=== PATIENT | female | born 1965 | race African-American/Black ===

== ENCOUNTER 2017-04-24 20:27 | Inpatient (IN) | payer OTHER ==
[~2017-04-24 20:27] MED LIST: ISOVUE-370 76%-LOCM 1 ML ONE
[2017-04-24] MEDS ORDERED: Acetaminophen 325 MG TAB ONE (20:53)
[2017-04-24 21:39] LABS: #Lymphocytes 0.8 thou/uL (1.20-3.40); #Monocytes 0.5 thou/uL (0.11-0.59); #Neutrophils 2.9 thou/uL (1.40-6.50); %Basophils 0.4 % (0.0-1.0); %Eosinophils 0.1 % (0.0-10.0); %Lymphocytes 19.4 % (21.0-51.0); %Monocytes 11.5 % (0.0-10.0); Hematocrit 30.8 % (36.0-47.0); Mean Platelet Volume 7.1 fL (7.4-10.4); Red Blood Cell (RBC) Count 3.68 mill/uL (4.20-5.40); White Blood Cell (WBC) Count 4.2 thou/uL (4.8-10.8)
[2017-04-24] MEDS ORDERED: Ketorolac Tromethamine 30 MG/ML VIAL ONE (21:52)
[2017-04-24 21:58] LABS: ALT (SGPT) 12 U/L (8-55); AST (SGOT) 19 U/L (5-34); Alkaline Phosphatase 72 U/L (40-150); Anion Gap 13 mmol/L (10-20); BUN (Urea Nitrogen) 13 mg/dL (7.0-18.7); Bilirubin, Total 0.2 mg/dL (0.2-1.2); CK (CPK) 264 U/L (29-168); Calc. Creatinine Clearance 0 mL/min (70-130); Carbon Dioxide 23 mmol/L (22-29); Chloride 107 mmol/L (98-107); Estimated GFR-MDRD Greater than 90; Globulin 3.6 g/dL (2.4-3.5); Lipase 12 U/L (8-78)
[2017-04-24 22:04] LABS: Acetaminophen Less than 6.0 mcg/mL (10.0-30.0); Salicylate Less than 8.0 mg/dL (15.0-30.0)
[2017-04-24 22:42] LABS: Troponin I 0.497 ng/mL (< 0.028)
--- NOTE | 2017-04-24 22:56 | RAD ---
SINGLE VIEW OF THE CHEST: 04/24/17 COMPARISON: None. HISTORY: Chest pain that began yesterday. Rectal bleeding for four days. FINDINGS: Single view of the chest shows a normal sized cardiomediastinal silhouette. There are areas of air s pace opacity projecting over the right lower lobe. No pleural effusion is seen. IMPRESSION: Areas of air space opacity in the right lower lobe may represent an infiltrate. Recommend following to resolution to exclude an underlying mass. POS: [facility]
[2017-04-24] MEDS ORDERED: Rabies Vaccine 2.5 UNIT VIAL IM SCH (23:45)
--- NOTE | 2017-04-25 00:15 | CT ---
CT OF THE ABDOMEN AND PELVIS WITH CONTRAST 04/24/17 COMPARISON: None. HISTORY: Multiple complaints including rectal bleeding and left flank pain that radiates to the left groin. S ubjective fever. TECHNIQUE: Multiple contiguous axial images were obtained in a CT of the abdomen and pelvis with contrast. Anastacia nal reformats were performed. FINDINGS: There are calcifications in the liver and spleen likely from prior granulomatous disease. The gallbl adder, kidneys, adrenal glands, and pancreas are unremarkable. No calcifications are seen in either kidney or along the course of the ureters. No hydronephrosis is seen. The uterus is enlarged with multiple apparent masses. These likely represent uterine fibroids. The v isualized large and small bowel are unremarkable. The appendix is unremarkable. No abdominal or pelvic lymphadenopathy are appreciated. Degenerative changes are seen in the spine. The visualized inferior thorax and abdominal wall soft tissues are unremarkable. IMPRESSION: 1. No evidence of acute intra-abdominal/pelvic abnormality. 2. Enlarged fibroid uterus. POS: [facility]
[2017-04-25] MEDS ORDERED: Ondansetron HCl/PF 4 MG/2 ML Vial IVP PRN (01:39)
[2017-04-25] MEDS ORDERED: Ondansetron ODT 4 MG TAB SL PRN (01:39)
[2017-04-25] MEDS ORDERED: Acetaminophen 325 MG TAB PO PRN (01:39)
[2017-04-25] MEDS ORDERED: Sodium Chloride 0.9% 1,000 ML IV SCH (01:45)
[2017-04-25 04:01] LABS: Troponin I 0.938 ng/mL (< 0.028)
[2017-04-25 05:55] LABS: Critical Call Chem Troponin I RESULT DECREASING
[2017-04-25] MEDS ORDERED: Potassium Chloride 20 MEQ TAB PO SCH (08:00)
[2017-04-25] MEDS ORDERED: Aspirin 81 mg Enteric Coated Tablet PO SCH (09:00)
[2017-04-25] MEDS ORDERED: traMADol HCl 50 MG TAB PO PRN (10:00)
--- NOTE | 2017-04-25 11:17 | CON ---
DATE OF CONSULTATION: 04/25/2017 REASON FOR CONSULTATION: Elevated troponin and chest pain. PRIMARY CARE PROVIDER: Dr. John Adams HISTORY OF PRESENT ILLNESS: Ms. Gonzales is an unfortunate 51-year-old woman with history of lupus, illicit drug use and tobacco abuse who recently presented with chest pain, back pain in addition to left flank pain. She also has had fevers and chills. She recently had a dog bite which was left u ntreated. Chest pain is described as sharp and constant, although now improved. Her peak troponin was 0.9 and is now down trending. PAST MEDICAL HISTORY: Chronic bronchitis, lupus, cervical cancer, continued tobacco abuse, bipolar disorder, COPD, BTL, hernia repair, cervical biopsy, thumb surgery. SOCIAL HISTORY: She states she used cocaine a few days ago. This likely corresponds to her recent symptoms. Positive tobacco and alcohol use. HOME MEDICATIONS: Include Celexa, Zyprexa, Naproxen, prednisone. REVIEW OF SYSTEMS: Ten point review of systems is reviewed and is as above, otherwise negative. PHYSICAL EXAMINATION: VITAL SIGNS: Blood pressure 98/53, pulse 81, temperature 99. GENERAL: Patient is a pleasant female who is in no acute distress. The patient appears older than h er stated age. NEUROLOGIC: The patient is alert and oriented times 3 with no focal neurologic deficits. HEENT: Sclerae without icterus. Mouth has moist mucous membranes with normal pallor. Poor dentiti on. NECK: No JVD. Carotid upstroke brisk. No bruits bilaterally. LUNGS: Clear to auscultation with unlabored respirations. BACK: No scoliosis or kyphosis. CARDIAC: Regular rate and rhythm with normal S1 and S2. No S3 or S4 noted. No significant rubs, mu rmurs, thrills, or gallops noted throughout the precordium. PMI is not displaced. There is no para sternal heave. ABDOMEN: Soft, nontender, nondistended. No peritoneal signs present. No hepatosplenomegaly. No ab normal striae. EXTREMITIES: 2+ femoral and 2+ dorsalis pedis pulses. No cyanosis, clubbing, or edema. Dog bite no sultana to her right leg. SKIN: No gross abnormalities. PERTINENT LABORATORY: As described above including a hemoglobin 9.6. Peak troponin 0.938 which is down trending, now 0.78, creatinine 0.81. EKG normal sinus rhythm, normal EKG. IMPRESSION: 1. Elevated troponin. 2. Chest pain. 3. Recent dog bite. 4. Lupus. 5. Illicit drug use. 6. Tobacco abuse. RECOMMENDATIONS: Ms. Petersen's case is certainly complex. She has had recent fevers, recent dog bi te in addition to rectal bleeding and is currently menstruating. She is currently chest pain free. Etiology of elevated troponin could be multifactorial and likely related to demand ischemia with no sultana above. Given that she is chest pain free with downgoing troponins, would recommend conservative treatment for now until she defervesces. May consider a noninvasive stress study versus angiograph y. Would also recommend an echo with Doppler to assess LV function. I counseled her on cessation o f all illicit drug use and the risks of use of cocaine, including coronary spasm and .
[2017-04-25] MEDS: PROVENTIL INHALER 6.7 G (200 INHALATIONS) INH SCH (19:05)
[2017-04-25] MEDS: Mometasone/Formoterol 120 PUFF INHALER INH SCH (19:05)
[2017-04-25] MEDS ORDERED: Diabetic Tussin DM 5 ML UDCUP PO PRN (19:11)
[2017-04-25 19:24] LABS: Amphetamine Not Detected (NotDetected); Methadone Not Detected (NotDetected); Methamphetamine Not Detected (NotDetected)
[2017-04-25] MEDS: Guaifenesin DM 100-10/5 ML UDCUP PO PRN (19:48)
[2017-04-25] MEDS: traMADol HCl 50 MG TAB PO PRN (19:48)
[2017-04-26] MEDS: traMADol HCl 50 MG TAB PO PRN ×3 (03:04→20:16)
[2017-04-26 06:05] LABS: #Eosinphils 0.1 thou/uL (0.0-0.7); #Monocytes 0.5 thou/uL (0.11-0.59); #Neutrophils 1.8 thou/uL (1.40-6.50); %Basophils 0.5 % (0.0-1.0); %Eosinophils 1.6 % (0.0-10.0); %Lymphocytes 29.9 % (21.0-51.0); Hematocrit 30.4 % (36.0-47.0); Mean Platelet Volume 7.9 fL (7.4-10.4); Red Blood Cell (RBC) Count 3.61 mill/uL (4.20-5.40); White Blood Cell (WBC) Count 3.4 thou/uL (4.8-10.8)
--- NOTE | 2017-04-26 06:23 | HP ---
DATE OF ADMISSION: 04/24/2017 CHIEF COMPLAINT: Chest pain, abdominal pain, rectal bleeding. HISTORY OF PRESENT ILLNESS: Ms. Gonzales is a 51-year-old -[place] female with past medical history of bipolar disorder, drug abuse, chronic back pain, and COPD, who came because of the chest pain. The patient states the pain is sharp in nature and she states it started with back pain and left flank pain, and radiating to the chest in the substernal area. The patient says the pain was n ot associated with any nausea or vomiting but associated with some shortness of breath. The pain wa s getting worse, so she decided to come to the hospital. The patient had a recent surgery for umbil ical hernia. The patient also had episodes of rectal bleeding x4 in the last few days. The patient claims she also had low-grade fever at home. The patient also admits to using cocaine and marijuan a 3 days ago. Last time she took was over 3 days ago. The patient also reports has dog bite 2 week s ago in the right leg. It was unprovoked stray dog bite. The patient came to the emergency room w here she was evaluated. She was given post exposure rabies vaccination found to have elevated troponin suggestive of NSTEMI. The patient is admitted for further evaluation and management. She was given KCl because the patient was hypokalemic as well, also received Lovenox. Currently, her c hest pain is better. PAST MEDICAL HISTORY: 1. Chronic bronchitis versus COPD. 2. Bipolar disorder. 3. Polysubstance abuse. 4. Tobacco abuse. 5. History of lupus. 6. Chronic back pain. PAST SURGICAL HISTORY: 1. Status post umbilical hernia repair. 2. Status post thumb surgery. 3. Status post cervical biopsy. CURRENT MEDICATIONS: The patient is on Zyprexa 10 mg daily, Celexa 20 mg daily, Symbicort 160/4.5 t wo puffs b.i.d., ProAir inhaler two puffs b.i.d., tramadol 50 q.i.d. p.r.n. ALLERGIES: No known drug allergies. FAMILY HISTORY: Nothing of interest. SOCIAL HISTORY: The patient lives with family. Smokes 1 pack a day and uses marijuana and cocaine. REVIEW OF SYSTEMS: Cardiovascular: Has chest pain and shortness of breath. Respiratory: Cough an d fever. Gastrointestinal: Abdominal pain, nausea, vomiting as well as rectal bleeding. Central N ervous System: No headache, no dizziness. PHYSICAL EXAMINATION: GENERAL: The patient is alert, awake, and oriented x3. VITAL SIGNS: Temperature 98, pulse 81, respirations 20, blood pressure 98/60. HEENT: Head is normocephalic, atraumatic. Pupils are equal and reactive. Nasopharynx is pink, pal e, and dry. Hard and soft palate, no lesions seen. SKIN: Skin turgor decreased. NECK: Supple. No JVD. LUNGS: Breath sounds diminished bilaterally. Percussion dull bilaterally. No rales, no rhonchi. HEART: S1, S2 regular. ABDOMEN: Soft. Surgical scar present in umbilical area. Abdomen is slightly tender diffusely. No guarding, no rigidity. Bowel sounds present. RECTAL: Done in the ER revealed heme-positive stool. NEUROLOGIC: No focal deficits. EXTREMITIES: No edema. Right lower leg has the dog bite wound. LABORATORY AND X-RAY FINDINGS: CBC shows WBC 4, hemoglobin 9.6, hematocrit 30, and platelets 326. Metabolic panel: Sodium 140, potassium 3.1, chloride 107, CO2 of 23, BUN 13, creatinine 0.8, glucos e 115, CK-MB 5.37, troponin 0.49. BNP was 133. Serum negative. Chest x-ray showed areas of air space opacity in the right lower lobe. EKG shows normal sinus rhythm, no acute ST-T wave change s seen. CT of the abdomen is unremarkable. ASSESSMENT: 1. Fcm-LN-evhoxiqnc myocardial infarction. 2. Possible demand ischemia. 3. Abdominal pain. 4. History of rectal bleeding. 5. Hypokalemia. 6. Chronic obstructive pulmonary disease. 7. Drug abuse. 8. Bipolar disorder. 9. Dog bite..
[2017-04-26 06:38] LABS: Anion Gap 13 mmol/L (10-20); BUN (Urea Nitrogen) 6 mg/dL (7.0-18.7); Calc. Creatinine Clearance 90 mL/min (70-130); Calcium 8.4 mg/dL (7.8-10.44); Carbon Dioxide 22 mmol/L (22-29); Chloride 104 mmol/L (98-107); Estimated GFR-MDRD Greater than 90; Iron 17 ug/dL (50-170)
[2017-04-26] MEDS: PROVENTIL INHALER 6.7 G (200 INHALATIONS) INH SCH ×2 (07:34→20:21)
[2017-04-26] MEDS: Mometasone/Formoterol 120 PUFF INHALER INH SCH ×2 (07:36→20:23)
[2017-04-26] MEDS: Ondansetron HCl/PF 4 MG/2 ML Vial IVP PRN (09:37)
--- NOTE | 2017-04-26 10:34 | RAD ---
PA AND LATERAL CHEST: Date: 04/26/17 HISTORY: Shortness of breath. COMPARISON: 04/24/17. FINDINGS: The rounded patchy density at the right lung base on the prior study is not seen on this study and h as resolved. There is an increased density focus of right lung base which has the appearance most galarza ggestive of a calcified granuloma. There is mild increased in linear interstitial densities at the l eft lung base which have developed from the prior study which could be related to either atelectasis or developing area of pneumonitis. Follow-up evaluation is recommended. Lungs are otherwise clear. Cardiac silhouette and pulmonary vasculature are within normal limits. No other interval change. IMPRESSION: 1. Interval development of increased linear and interstitial densities at the left lung base which could be related to either atelectasis or developing area of pneumonitis. Follow-up evaluation is re commended. 2. Resolution of rounded patchy density at the right lung base compared to the prior study. Calcifi ed granulomata are seen in the right lower lobe, but the right lung is otherwise clear. POS: [facility]
[2017-04-26] MEDS: OLANZapine 5 MG TAB PO SCH (11:00)
--- NOTE | 2017-04-26 18:16 | PRG ---
DATE OF SERVICE: 04/26/2017 SUBJECTIVE: Ms. Gonzales states she is feeling better today. She has less shortness of breath. No chest pain or pressure noted. She continued to have mild left flank pain. PHYSICAL EXAMINATION: VITAL SIGNS: Blood pressure 104/73, pulse 75, temperature 98.7. LUNGS: Rhonchi and rales bilaterally. CARDIAC: Regular rate and rhythm. ABDOMEN: Soft, nontender, nondistended. EXTREMITIES: No edema. LABORATORY DATA: Hemoglobin 9.6, creatinine 0.71. IMPRESSION: 1. Elevated troponin. 2. Anemia. 3. Rectal bleeding. 4. Recent hernia repair. 5. Cocaine use. 6. Tobacco abuse. RECOMMENDATIONS: Ms. Gonzales most likely demand ischemia from that stated above. She does not shanti ear to be an acute infarct. I would consider a noninvasive stress study prior to proceeding with an giography. She will be treated with . I would recommend a noninvasive stress study on Saturday. Further recommendations pending the findings on the stress.
[2017-04-26] MEDS: Guaifenesin DM 100-10/5 ML UDCUP PO PRN (20:17)
--- NOTE | 2017-04-26 22:49 | CON ---
DATE OF CONSULTATION: 04/26/2017 GASTROENTEROLOGY CONSULTATION CHIEF COMPLAINT: Abdominal pain, back pain, blood in stool, and chest pain. HISTORY OF PRESENT ILLNESS: Ms. Gonzales is a 51-year-old woman with COPD and history of bipolar di sorder, who presented with primarily back pain as well as some chest pain in the substernal area and left lower quadrant stabbing abdominal pain that goes on for hours at a time. She has had constipa tion with 3 to 4 days between bowel movements lately. She has had blood in the stool with red blood on the toilet paper and intermittent red blood in the toilet water and mixed with the stools severa l times per week. This has been going on over the last couple of months. She reports heavy menstru al periods that have come multiple times per month. She has a history of cervical cancer in the rem ote past back in the . Her last Pap smear was 2001. She had recurrent umbilical hernia repair on 01/18/2017. PAST MEDICAL HISTORY: Polysubstance abuse, her last cocaine use was a few days prior to admission; bipolar disorder; COPD; lupus; chronic back pain. PAST SURGICAL HISTORY: Umbilical hernia repair, thumb surgery, cervical biopsy. ALLERGIES: No known drug allergies. CURRENT INPATIENT MEDICATIONS: Include albuterol, citalopram, mometasone, and olanzapine. FAMILY HISTORY: Negative for GI malignancy. SOCIAL HISTORY: She smokes a pack per day. She has had recent cocaine and marijuana use. No ongoi ng alcohol use. REVIEW OF SYSTEMS: Negative x10 systems reviewed except as stated in the history of present illness . PHYSICAL EXAMINATION: VITAL SIGNS: Temperature 100.8, pulse 67, blood pressure 117/73. GENERAL: She is in no acute distress. She is alert and oriented x3. HEENT: Eyes have no scleral icterus. Oropharynx is clear without lesions. She has poor dentition and she complains of pain in the left upper tooth. NECK: There is no cervical or supraclavicular lymphadenopathy. LUNGS: Clear to auscultation bilaterally. HEART: Regular rate and rhythm. ABDOMEN: Soft. She is tender in the left lower quadrant without guarding. Bowel sounds are presen t. She also has some tenderness in the epigastric region. EXTREMITIES: No lower extremity edema. LABORATORY AND X-RAY FINDINGS: Urine cocaine was positive. Troponin peak is 0.93. Creatinine is 0 .81. Iron 17, TIBC 295, ferritin 10, albumin 3.4, bilirubin 0.2, AST 19, ALT 12, alkaline phosphata se 72, and lipase 12. White blood cell count 3.4, hemoglobin 9.6, and platelets 307. IMPRESSION: 1. Iron deficiency anemia. She has had intermittent rectal bleeding. She takes naproxen daily. S he has epigastric tenderness and left lower quadrant tenderness. Rule out peptic ulcer disease or l ower gastrointestinal bleeding source. She has heavy menstrual periods; however, multiple times per month along with abnormal findings of the uterus on CT scan. She has a history of cervical cancer for which probably she has refused evaluation since 2001. 2. Hematochezia. 3. Chronic constipation. 4. Elevated troponin with cocaine use. Dr. Mustafa has evaluated her and believes that this is l ikely demand ischemia. She has had an echocardiogram performed and she is planned for stress test o saturday. RECOMMENDATIONS: 1. MiraLax daily for the constipation. 2. Recommend EGD and colonoscopy once the cardiac evaluation is completed. If she remains in the h [facility]spital then this can be done as an inpatient.
[2017-04-27] MEDS: traMADol HCl 50 MG TAB PO PRN ×3 (03:33→19:09)
[2017-04-27] MEDS: PROVENTIL INHALER 6.7 G (200 INHALATIONS) INH SCH ×2 (07:36→20:02)
[2017-04-27] MEDS: Mometasone/Formoterol 120 PUFF INHALER INH SCH ×2 (07:37→20:04)
[2017-04-27] MEDS: OLANZapine 5 MG TAB PO SCH (08:32)
[2017-04-27] MEDS ORDERED: Rabies Vaccine Human 2.5 UNITS VIAL IM ONE (09:00)
[2017-04-27] MEDS: Polyethylene Glycol 3350 17 GM Packet PO SCH (12:26)
--- NOTE | 2017-04-27 13:06 | PRG ---
DATE OF SERVICE: 04/27/2017 SUBJECTIVE: Ms. Gonzales has some seepage of red blood intermittently from her rectum that she iden tifies on the toilet tissue. She still has some left-sided abdominal pain. OBJECTIVE: VITAL SIGNS: Temperature 98.1, pulse 62, blood pressure 105/74. LABORATORY DATA: Hemoglobin is 9.6. IMPRESSION: 1. Iron deficiency anemia. 2. Hematochezia. 3. Chronic constipation. PLAN: 1. EGD and colonoscopy once cardiology evaluation of the elevated troponins is completed. She had cocaine abuse with chest pain and likely demand ischemia. 2. She does have a history of cervical cancer which has not been followed up for years per her repo rt.
--- NOTE | 2017-04-27 15:33 | PDOC.CTH ---
Cardiology Progress Note - Subjective No new issues. - Objective Vital Signs Temp Pulse Resp BP Pulse Ox 04/27/17 12:00 97.9 F 72 16 114/68 100 04/27/17 08:00 98.1 F 62 16 105/74 97 04/27/17 04:05 99.6 F 67 20 138/73 94 L Admit Weight 132 lb 4.8 oz Weight 132 lb 7.965 oz 04/26/17 04/27/17 04/28/17 06:59 06:59 06:59 Intake Total 1560 2110 Output Total 1100 1500 Balance 460 610 - Physical Examination General/Neuro: alert & oriented x3, NAD Neck: no JVD present Lungs: unlabored respirations Heart: RRR Abdomen: NT/ND Extremities: other: (no edema.) - Telemetry Telemetry Rhythm: NSR - Labs Result Diagrams: 04/26/17 04:52 04/26/17 04:52 Troponin/CKMB CK-MB (CK-2) 5.3 ng/mL (0-6.6) 04/24/17 21:22 Troponin I 0.780 ng/mL (< 0.028) H* 04/25/17 04:57 - Assessment/Plan 1. NSTEMI 2. Substance abuse, cocaine 3. Hematochezia PLAN: - Likely demand ischemia from substance use. - MPI tomorrow for risk stratification.
--- NOTE | 2017-04-27 17:53 | ULT ---
TRANSABDOMINAL AND TRANSVAGINAL PELVIC ULTRASOUND: 04/27/17 INDICATION: History of rectal bleeding and uterine fibroids. COMPARISON: CT of the abdomen and pelvis dated 04/24/17. TECHNIQUE: Hernández scale, color doppler and vascular duplex with spectral analysis was performed of the pelvis via transabdominal and transvaginal approach. FINDINGS: The uterus is enlarged and heterogeneous measuring 11.4 x 6.3 x 5.7 cm. The largest fibroid seen wit hin the intramural portion of the uterus along the left anterior body measures 5.7 x 4 x 4.7 cm. The endometrial stripe due to the enlarged and lobulated uterus is difficult to evaluate; however, it m easures approximately 1 cm with a small amount of endometrial fluid present. Small amount of free fl uid is seen within the cul-de-sac. The right ovary measures 3.3 x 2 x 1.9 cm. Left ovary measures 4.1 x 2.2 x 2.4 cm. Normal flow is pr esent to both ovaries. IMPRESSION: 1. Fibroid uterus. 2. Mild free fluid in the pelvis. POS: [facility]
[2017-04-28] MEDS: traMADol HCl 50 MG TAB PO PRN ×3 (03:56→20:12)
[2017-04-28] MEDS: PROVENTIL INHALER 6.7 G (200 INHALATIONS) INH SCH ×2 (07:43→18:45)
[2017-04-28] MEDS: Mometasone/Formoterol 120 PUFF INHALER INH SCH ×2 (07:46→18:47)
[2017-04-28] MEDS: OLANZapine 5 MG TAB PO SCH (08:43)
[2017-04-28] MEDS: Ondansetron HCl/PF 4 MG/2 ML Vial IVP PRN (13:33)
[2017-04-28] MEDS: Polyethylene Glycol 3350 17 GM Packet PO SCH (15:02)
--- NOTE | 2017-04-28 15:39 | PDOC.CTH ---
Cardiology Progress Note - Subjective No chest pain. No new issues. - Objective Vital Signs Temp Pulse Resp BP BP Pulse Ox 04/28/17 15:00 97.7 F 94 16 115/61 98 04/28/17 08:00 97.7 F 76 16 99/58 L 94 L 04/28/17 07:46 76 16 97 04/28/17 07:43 76 16 97 04/28/17 04:00 99.4 F 72 20 102/61 95 Admit Weight 132 lb 4.8 oz Weight 125 lb 11.2 oz 04/27/17 04/28/17 04/29/17 06:59 06:59 06:59 Intake Total 2110 1740 Output Total 1500 2570 Balance 610 -830 - Physical Examination General/Neuro: alert & oriented x3, NAD Neck: no JVD present Lungs: unlabored respirations Heart: RRR Abdomen: NT/ND Extremities: other: (no edema) - Telemetry Telemetry Rhythm: NSR - Labs Result Diagrams: 04/26/17 04:52 04/26/17 04:52 Troponin/CKMB CK-MB (CK-2) 5.3 ng/mL (0-6.6) 04/24/17 21:22 Troponin I 0.780 ng/mL (< 0.028) H* 04/25/17 04:57 - Assessment/Plan 1. NSTEMI 2. Substance abuse, cocaine 3. Hematochezia PLAN: - Likely demand ischemia from substance use. - Awaiting results of MPI done today.
--- NOTE | 2017-04-28 17:06 | NM ---
MYOCARDIAL PERFUSION AND QUANTATIVE GATED SPECT STUDY: History: 51-year-old with NSTEMI. Dose: 28.3 mCi Technetium 99M Cardiolite for stress and 9.4 mCi for the resting portion of the exam. Myocardial perfusion and quantitative gated SPECT images obtained. The patient was stressed using 0 .4 mg Lexiscan given IV. FINDINGS: Images demonstrate no significant evidence of areas of reversibility. No evidence of myocardial isch emia or scar is seen. Ejection fraction measures 75%. No evidence of wall motion abnormality is seen. IMPRESSION: Normal myocardial perfusion and quantitative gated SPECT study. POS: [facility]
--- NOTE | 2017-04-28 19:40 | PRG ---
DATE OF SERVICE: 04/28/2017 SUBJECTIVE: Ms. Gonzales has no acute complaints. She still has some epigastric discomfort. She h ad a formed brown bowel movement today, but has still been passing red blood on the toilet paper and leakage from the rectum. OBJECTIVE: VITAL SIGNS: Temperature 97.7, pulse 94, blood pressure 115/61. GENERAL: She is in no acute distress. LUNGS: Clear to auscultation bilaterally. HEART: Regular rate and rhythm. ABDOMEN: Soft, mild tenderness in the epigastric region without guarding. Bowel sounds are present . EXTREMITIES: No lower extremity edema. LABORATORY DATA: Her hemoglobin remained stable at 9.6. IMPRESSION: 1. Iron deficiency anemia. 2. Hematochezia. 3. Non-ST elevation myocardial infarction secondary to cocaine use. RECOMMENDATIONS: 1. She underwent stress test today. If this is negative and Cardiology completes the workup, then we can give a bowel prep tomorrow and plan colonoscopy and EGD on Saturday. In the meantime, give a low residue diet. 2. MiraLax daily for chronic constipation.
[2017-04-28] MEDS: Guaifenesin DM 100-10/5 ML UDCUP PO PRN (20:17)
[2017-04-29] MEDS: traMADol HCl 50 MG TAB PO PRN ×3 (03:57→19:45)
[2017-04-29] MEDS: Guaifenesin DM 100-10/5 ML UDCUP PO PRN (03:59)
[2017-04-29 05:42] VITALS: BMI 19.8
[2017-04-29 05:47] LABS: Anion Gap 12 mmol/L (10-20); BUN (Urea Nitrogen) 19 mg/dL (7.0-18.7); Calc. Creatinine Clearance 70 mL/min (70-130); Calcium 8.8 mg/dL (7.8-10.44); Carbon Dioxide 26 mmol/L (22-29); Chloride 104 mmol/L (98-107); Estimated GFR-MDRD 81
[2017-04-29 05:57] LABS: Hematocrit 33.7 % (36.0-47.0); Mean Platelet Volume 7.3 fL (7.4-10.4); Neutrophil 34 % (42-75); Red Blood Cell (RBC) Count 3.99 mill/uL (4.20-5.40); White Blood Cell (WBC) Count 2.9 thou/uL (4.8-10.8)
[2017-04-29] MEDS: PROVENTIL INHALER 6.7 G (200 INHALATIONS) INH SCH ×2 (06:57→18:24)
[2017-04-29] MEDS: Mometasone/Formoterol 120 PUFF INHALER INH SCH ×2 (06:59→18:24)
[2017-04-29] MEDS: OLANZapine 5 MG TAB PO SCH (08:39)
[2017-04-29] MEDS: Polyethylene Glycol 3350 17 GM Packet PO SCH (11:29)
--- NOTE | 2017-04-29 12:42 | PDOC.CTH ---
Cardiology Progress Note - Subjective Patient seen and examined. No new complaints. Denies any CP. Reports continued mild epigastric discomfort. - Objective Vital Signs Temp Pulse Resp BP BP Pulse Ox 04/29/17 11:25 97.9 F 76 16 91/52 L 95 04/29/17 08:40 98.0 F 64 16 95 04/29/17 08:36 98.0 F 64 16 92/53 L 95 04/29/17 04:00 97.6 F 76 18 103/58 L 96 Admit Weight 132 lb 4.8 oz Weight 130 lb 04/28/17 04/29/17 04/30/17 06:59 06:59 06:59 Intake Total 1740 1370 Output Total 2570 840 Balance -830 530 - Physical Examination General/Neuro: alert & oriented x3, NAD Neck: no JVD present Lungs: CTA, unlabored respirations Heart: RRR Abdomen: soft, other: (active BS) Extremities: other: (no edema to BLE) - Telemetry Telemetry Rhythm: NSR - Labs Result Diagrams: 04/29/17 04:47 04/29/17 04:47 Troponin/CKMB CK-MB (CK-2) 5.3 ng/mL (0-6.6) 04/24/17 21:22 Troponin I 0.780 ng/mL (< 0.028) H* 04/25/17 04:57 - Assessment/Plan 1. NSTEMI 2. Polysubstance abuse, cocaine + UDS 3. Hematochezia PLAN: Elevated troponin likely due to demand ischemia. Recent nuclear medicine stress test was negative for ischemia or infarct. Normal EF on echo. Patient currently denies any CP. She has an EGD and colonoscopy planned for tomorrow for further evaluation of epigastric pain and hematochezia. She is stable from a CV standpoint. We have no further recommendations. Patient was advised to follow up in our office within one week of discharge.
[2017-04-29] MEDS ORDERED: GoLYTELY 4,000 ml Bottle PO SCH (22:30)
--- NOTE | 2017-04-29 22:55 | PRG ---
DATE OF SERVICE: 04/29/2017 SUBJECTIVE: She has no acute complaints today. She still has some back pain. Still passes blood i n the stool. OBJECTIVE: VITAL SIGNS: Temperature 98.2, pulse 80, blood pressure 115/57. GENERAL: She is in no acute distress. She is awake and alert. LUNGS: Clear to auscultation bilaterally. HEART: Regular rate and rhythm. ABDOMEN: Soft. Mild tenderness in the left abdomen. Bowel sounds are present. EXTREMITIES: No lower extremity edema. LABORATORY DATA: Hemoglobin is 10.4. Creatinine is 0.9. IMPRESSION: 1. Hematochezia and iron deficiency anemia. 2. Non-ST elevation myocardial infarction secondary to cocaine use. RECOMMENDATIONS: EGD and colonoscopy tomorrow.
[2017-04-29] MEDS: GoLYTELY 4,000 ml Bottle PO SCH (23:56)
[2017-04-30] MEDS: traMADol HCl 50 MG TAB PO PRN ×3 (02:46→21:07)
[2017-04-30] MEDS: GoLYTELY 4,000 ml Bottle PO SCH (06:32)
[2017-04-30] MEDS: Mometasone/Formoterol 120 PUFF INHALER INH SCH ×2 (06:34→20:14)
[2017-04-30] MEDS: PROVENTIL INHALER 6.7 G (200 INHALATIONS) INH SCH ×2 (06:36→20:14)
--- NOTE | 2017-04-30 10:19 | PDOC.CTH ---
Cardiology Progress Note - Subjective No current complaints - Objective Vital Signs Temp Pulse Resp BP Pulse Ox 04/30/17 06:36 78 16 99 04/30/17 06:34 78 16 99 04/30/17 04:00 98.2 F 65 18 114/60 96 Admit Weight 132 lb 4.8 oz Weight 130 lb 12.8 oz 04/29/17 04/30/17 05/01/17 06:59 06:59 06:59 Intake Total 1370 3400 Output Total 840 400 Balance 530 3000 - Physical Examination General/Neuro: alert & oriented x3, NAD Neck: carotid US brisk, no JVD present Lungs: CTA, unlabored respirations Heart: PMI normal, RRR Abdomen: no HSM, NT/ND, soft Extremities: + femoral B - Telemetry Telemetry Rhythm: SR - Labs Result Diagrams: 04/29/17 04:47 04/29/17 04:47 Troponin/CKMB CK-MB (CK-2) 5.3 ng/mL (0-6.6) 04/24/17 21:22 Troponin I 0.780 ng/mL (< 0.028) H* 04/25/17 04:57 - Assessment/Plan 1. CP 2. Elevated troponin 3. Cocaine use 4. toba use CV status stable. CL study negative for ischemia. May be related to cornary spasm from cocaine use. No further CV recommendations. Ok to dc tele and transfer to medical
[2017-04-30] MEDS: Polyethylene Glycol 3350 17 GM Packet PO SCH (11:40)
[2017-04-30] MEDS ORDERED: ePHEDrine/0.9% NaCl/PF SYRINGE 50 mg/10 ml ONE (14:16)
[2017-04-30] MEDS ORDERED: Propofol 200 MG/20 ML VIAL ONE (14:16)
[2017-04-30] MEDS ORDERED: PHENYLEPHRINE-NS 100 MCG/ML 10 ML SYRINGE ONE (14:16)
[2017-04-30] MEDS ORDERED: Ondansetron HCl/PF 4 MG/2 ML Vial IVP PRN (14:53)
[2017-04-30] MEDS ORDERED: Morphine Sulfate 2 MG/ML SYRINGE SLOW IVP PRN (14:53)
[2017-04-30] MEDS ORDERED: Promethazine HCl 25 MG/ML VIAL SLOW IVP PRN (14:53)
[2017-04-30] MEDS: OLANZapine 5 MG TAB PO SCH ×2 (15:28→21:24)
[2017-04-30] MEDS: Carvedilol 3.125 MG TAB PO SCH (21:07)
[2017-04-30] MEDS: Atorvastatin Calcium 10 MG TAB PO SCH (21:07)
--- NOTE | 2017-04-30 23:44 | OP ---
PREOPERATIVE DIAGNOSES: 1. Iron deficiency. 2. Hematochezia. POSTOPERATIVE DIAGNOSES: 1. Normal esophagogastroduodenoscopy. 2. Diverticulosis coli throughout the colon. 3. Two polyps, one at the transverse colon and one in the sigmoid colon about 5-7 mm in size sessil e, removed by snare and polypectomy with good hemostasis. RECOMMENDATIONS: 1. Await histopathology, if adenomatous, repeat colonoscopy in 5 years. 2. Advance diet as tolerated. ANESTHESIA: TIVA. PROCEDURE IN DETAIL: After the patient was informed of the risks, benefits, possible complications of endoscopy including perforation, bleeding, reactions to medications and aspiration, informed cons ent was obtained. The patient was brought to the operative suite where she was sedated in standard fashion. When she was comfortable, a bite block was placed in incisural orifice. The endoscope was advanced through the esophagus, stomach and second and third portion of duodenum and slowly removed . There was good visualization of mucosa. There were no masses, lesions or arteriovenous malformat ions identified in the stomach. There was no esophagitis. Retroflexed views in the stomach were no rmal. Duodenum was normal to the third portion. The patient's scope was removed. The patient was turned in the room. A rectal exam was performed w hich was normal. The endoscope was advanced through anal canal through the colon to cecum which was identified by the ileocecal valve and appendiceal orifice. The scope was then slowly removed. The re was good visualization of mucosa. Photodocumentation obtained above all anatomical markers. The re was diverticulosis coli throughout the entire colon. There were 2 polyps, one in the transverse and one in the sigmoid both about 5-7 mm sessile. These were removed by snare polypectomy and submi tted to Pathology. The scope was then slowly removed. The prep was good. No other findings were n oted. The patient tolerated the procedure well and was brought to recovery room in stable condition .
[2017-05-01 05:53] LABS: #Eosinphils 0.1 thou/uL (0.0-0.7); #Lymphocytes 1.2 thou/uL (1.20-3.40); #Monocytes 0.5 thou/uL (0.11-0.59); #Neutrophils 1.6 thou/uL (1.40-6.50); %Basophils 0.5 % (0.0-1.0); %Eosinophils 2.4 % (0.0-10.0); %Lymphocytes 35.7 % (21.0-51.0); %Monocytes 14.1 % (0.0-10.0); Hematocrit 28.1 % (36.0-47.0); Mean Platelet Volume 7.2 fL (7.4-10.4); Red Blood Cell (RBC) Count 3.35 mill/uL (4.20-5.40); White Blood Cell (WBC) Count 3.3 thou/uL (4.8-10.8)
[2017-05-01 06:18] LABS: Anion Gap 12 mmol/L (10-20); BUN (Urea Nitrogen) 7 mg/dL (7.0-18.7); Calc. Creatinine Clearance 89 mL/min (70-130); Calcium 8.6 mg/dL (7.8-10.44); Carbon Dioxide 25 mmol/L (22-29); Chloride 106 mmol/L (98-107); Cholesterol 130 mg/dl (< 200 Desired); Estimated GFR-MDRD Greater than 90; LDL Cholesterol, Calculated 51 mg/dL
[2017-05-01] MEDS: PROVENTIL INHALER 6.7 G (200 INHALATIONS) INH SCH ×2 (08:04→19:37)
[2017-05-01] MEDS: Mometasone/Formoterol 120 PUFF INHALER INH SCH ×2 (08:05→19:38)
[2017-05-01] MEDS: Carvedilol 3.125 MG TAB PO SCH (09:17)
[2017-05-01] MEDS: Mag-Al 1200 mg/1200 mg/30 ML UDCUP PO PRN ×2 (10:21→20:35)
[2017-05-01] MEDS: Polyethylene Glycol 3350 17 GM Packet PO SCH (13:16)
[2017-05-01] MEDS: OLANZapine 5 MG TAB PO SCH ×2 (13:19→14:32)
[2017-05-01] MEDS: traMADol HCl 50 MG TAB PO PRN ×2 (14:32→20:42)
[2017-05-01] MEDS: Atorvastatin Calcium 10 MG TAB PO SCH (20:35)
--- NOTE | 2017-05-02 00:15 | PRG ---
DATE OF SERVICE: 05/01/2017 SUBJECTIVE: She has had no acute changes today. OBJECTIVE: VITAL SIGNS: Temperature 99.2, pulse 82, blood pressure 96/60. IMPRESSION: Iron deficiency anemia. Colonoscopy revealed a couple of adenomas removed from the tra nsverse and sigmoid colon. Diverticulosis was noted throughout the colon. The EGD was normal. No definitive bleeding source was identified. She should follow up in the office in a month and consid eration can be given for small bowel capsule endoscopy to evaluate for small bowel bleeding source a s a cause of anemia. CT scan of the abdomen and pelvis was unremarkable. RECOMMENDATIONS: 1. Follow up in GI clinic around a month or so. 2. I will sign off for now. Please call if GI can be of assistance.
[2017-05-02] MEDS: Mag-Al 1200 mg/1200 mg/30 ML UDCUP PO PRN ×2 (00:24→11:51)
[2017-05-02] MEDS: OLANZapine 5 MG TAB PO SCH (08:17)
[2017-05-02] MEDS: PROVENTIL INHALER 6.7 G (200 INHALATIONS) INH SCH (08:23)
[2017-05-02] MEDS: Mometasone/Formoterol 120 PUFF INHALER INH SCH (08:23)
[2017-05-02] MEDS: Polyethylene Glycol 3350 17 GM Packet PO SCH ×2 (11:02→11:51)
[2017-05-02 11:54] VITALS: BP 101/65; TEMP 97.7
--- NOTE | 2017-05-03 13:45 | STRESS ---
Acquisition Time: 2017-04-28 12:56:34 Total Exercise Time: 00:01:00 Test Indications: NSTEMI Medications: Protocol: LEXISCAN Max HR: 116 BPM 67% of Pred: 171 BPM Max BP: 100/066 mmHG Max Work Load: 1.0 METS RESTING ECG: NORMAL SINUS RHYTHM AT 71 BPM SYMPTOMS: STOMACH PAIN, NAUSEA NORMAL BP RESPONS ECTOPY: NONE ECG STRESS: NO SIGNIFICANT CHANGES INTERPRETATION: NEGATIVE ECG/AWAIT NUCLEAR IMAGES FOR DEFINITIVE DIAGNOSIS Confirmed by OSWALDO LEWIS M.D. ([id number]) on 05/03/2017 1:44:51 PM Referred By: MD Rhett LEWIS Confirmed By:OSWALDO LEWIS M.D.
--- NOTE | 2017-05-03 14:24 | DIS ---
DATE OF ADMISSION: 04/24/2017 DATE OF DISCHARGE: 05/02/2017 ADMITTING DIAGNOSES: 1. Non-ST elevation myocardial infarction due to demand ischemia. 2. Abdominal pain. 3. History of rectal bleeding. 4. Severe anemia. 5. Severe hypokalemia. 6. Chronic obstructive pulmonary disease. 7. Cocaine abuse. 8. Bipolar disorder. 9. History of dog bite. FINAL DIAGNOSES: 1. Non-ST elevation myocardial infarction due to demand ischemia. 2. Abdominal pain, resolved. 3. Rectal bleeding by history, status post colonoscopy and EGD. 4. Hypokalemia, corrected. 5. Chronic obstructive pulmonary disease. 6. Cocaine abuse. HISTORY AND BRIEF SUMMARY OF HOSPITAL COURSE: Ms. Gonzales is a 51-year-old -[place]ian female admitted because of chest pain, shortness of breath, abdominal pain, history of rectal bleeding. T he patient was found to have non-ST elevation and acute MD. The patient was monitored. Cardiology consult was done. The patient was seen by Dr. Mustafa, suggested medical management, might consi elodia noninvasive study, stress test versus angiography. The patient is strongly advised to stop all illicit drugs. In the next few days, the patient was monitored and became more stable. Echocardiogr am was done. Echocardiogram showed normal LV function with ejection fraction of 55%, but it showed some diastolic dysfunction. The patient also underwent Cardiolite stress test and it did not show a ny ischemia. The patient was managed medically and also the patient had GI consult done. The patie nt was seen by Dr. Juan Armstrong and suggested EGD and colonoscopy for her rectal bleeding and anemi a. The patient underwent the procedures. EGD was normal. Colonoscopy revealed diverticulosis coli , 2 polyps. The patient did not have any more bleeding. Her H\T\H remained stable around 8.8. The patient has a history of fibroid uterus. Pelvic ultrasound was done, which confirmed her uterine f ibroid, currently not bleeding. So, the patient has improved. In view of that, the patient was dis charged to home. PHYSICAL EXAMINATION: GENERAL: At the time of discharge, she was stable. VITAL SIGNS: Stable. LUNGS: Clear. HEART: Sounds regular. ABDOMEN: Soft, nontender. Bowel sounds present. DISCHARGE MEDICATIONS: Include Zyprexa 15 mg daily, tramadol 50 q.i.d. p.r.n., aspirin 81 mg daily, Robitussin DM p.r.n., Maalox p.r.n., MiraLax 17 grams daily, Lipitor 10 mg daily, Dulera 2 puffs b. i.d., albuterol inhaler two puffs b.i.d. The patient is advised to come for followup regarding her fibroid uterus. She will be referred to g ynecologist.
== END 2017-05-02 12:45 | disposition home or self-care (01) | DRG 281 ==
LOC: ERS 20:27 → 2NO 23:12 → T4-B 04-30 09:37
PROVIDERS: ADMIT Internal Medicine; ATTEND Internal Medicine
PROC: 0DJ08ZZ Inspection of Upper Intestinal Tract, Via Natural or Artificial Opening Endoscopic (ICD-10-PCS; principal; 2017-04-30)
PROC: 0DBN8ZX Excision of Sigmoid Colon, Via Natural or Artificial Opening Endoscopic, Diagnostic (ICD-10-PCS; 2017-04-30)
PROC: 0DBL8ZX Excision of Transverse Colon, Via Natural or Artificial Opening Endoscopic, Diagnostic (ICD-10-PCS; 2017-04-30)
DX: I21.4 Non-ST elevation (NSTEMI) myocardial infarction (principal); K62.5 Hemorrhage of anus and rectum; M32.9 Systemic lupus erythematosus, unspecified; F14.10 Cocaine abuse, uncomplicated; J44.9 Chronic obstructive pulmonary disease, unspecified; D50.9 Iron deficiency anemia, unspecified; S81.851A Open bite, right lower leg, initial encounter; F31.9 Bipolar disorder, unspecified; G89.29 Other chronic pain; M54.9 Dorsalgia, unspecified; F12.10 Cannabis abuse, uncomplicated; F17.210 Nicotine dependence, cigarettes, uncomplicated; I24.8 Other forms of acute ischemic heart disease; E87.6 Hypokalemia; W54.0XXA Bitten by dog, initial encounter; Z23 Encounter for immunization; K57.30 Diverticulosis of large intestine without perforation or abscess without bleeding; K63.5 Polyp of colon; T40.5X5A Adverse effect of cocaine, initial encounter; K59.09 Other constipation; Z85.41 Personal history of malignant neoplasm of cervix uteri
CPT/HCPCS: 36415; 71010; 71020; 74177; 76856; 78452; 80048; 80053; 80061; 80306; 80307; 82550; 82553; 82728; 83540; 83550; 83690; 83880; 84484; 85025; 88305; 90375; 90471; 90675; 90732; 93005; 93017; 93306; 93798; 96361; 96372; 96374; 96375; A4216; A9500; G0009; J1885; J2270; J2405; J2704

== ENCOUNTER 2017-08-18 15:20 | Inpatient (IN) | payer OTHER ==
[2017-08-18 16:07] LABS: #Lymphocytes 0.7 thou/uL (1.20-3.40); #Monocytes 0.4 thou/uL (0.11-0.59); #Neutrophils 3.2 thou/uL (1.40-6.50); %Basophils 0.1 % (0.0-1.0); %Monocytes 8.1 % (0.0-10.0); %Neutrophils 73.9 % (42.0-75.0); Hemoglobin 10.5 g/dL (12.0-16.0); Mean Corpuscular HGB CONC 30.8 g/dL (32.0-36.0); Mean Corpuscular Hemoglobin 25.9 pg (27.0-31.0); Mean Corpuscular Volume 84.1 fl (81.0-99.0); Mean Platelet Volume 7.3 fL (7.4-10.4); Platelet Count 340 thou/uL (130-400); RBC Distribution Width 16.7 % (11.5-14.5); Red Blood Cell (RBC) Count 4.06 mill/uL (4.20-5.40); White Blood Cell (WBC) Count 4.4 thou/uL (4.8-10.8)
[2017-08-18 16:21] LABS: ALT (SGPT) 26 U/L (8-55); AST (SGOT) 47 U/L (5-34); Albumin 3.5 g/dL (3.5-5.0); Alkaline Phosphatase 74 U/L (40-150); Anion Gap 16 mmol/L (10-20); BUN (Urea Nitrogen) 19 mg/dL (7.0-18.7); Bilirubin, Total 0.3 mg/dL (0.2-1.2); Calc. Creatinine Clearance 0 mL/min (70-130); Calcium 8.9 mg/dL (7.8-10.44); Carbon Dioxide 17 mmol/L (22-29); Chloride 110 mmol/L (98-107); Estimated GFR-MDRD 87; Globulin 3.8 g/dL (2.4-3.5); Glucose 111 mg/dL (70-105); Potassium 3.8 mmol/L (3.5-5.1); Protein, Total 7.3 g/dL (6.0-8.3); Sodium 139 mmol/L (136-145)
[2017-08-18 16:25] LABS: CKMB 5.2 ng/mL (0-6.6); Troponin I Less than 0.010 ng/mL (< 0.028)
--- NOTE | 2017-08-18 17:28 | RAD ---
CHEST ONE VIEW: History: Chest pain. Comparison: Chest two view, 04-26-17. FINDINGS: Lungs are clear. No pneumothorax or effusion. Cardiomediastinal silhouette and mediastinal contours are normal. Right lower lobe granulomas are similar. IMPRESSION: No intrathoracic abnormality. POS: [facility]
[2017-08-18] MEDS ORDERED: Ketorolac Tromethamine 30 MG/ML VIAL ONE (18:38)
[2017-08-18 19:48] LABS: Troponin I 0.033 ng/mL (< 0.028)
[2017-08-18] MEDS ORDERED: Acetaminophen 325 MG TAB PO PRN (20:13)
[2017-08-18] MEDS ORDERED: Ondansetron ODT 4 MG TAB SL PRN (20:13)
[2017-08-18] MEDS ORDERED: Ondansetron HCl/PF 4 MG/2 ML Vial IVP PRN (20:13)
[2017-08-18 22:59] LABS: Troponin I 0.029 ng/mL (< 0.028)
[2017-08-18 23:15] VITALS: BMI 20.5
[2017-08-18] MEDS ORDERED: OLANZapine 5 MG TAB PO SCH (23:15)
[2017-08-19] MEDS: traMADol HCl 50 MG TAB PO PRN ×3 (00:14→15:04)
[2017-08-19] MEDS: Mometasone/Formoterol 120 PUFF INHALER INH SCH ×2 (07:29→19:11)
[2017-08-19] MEDS: Sodium Chloride 0.9% 1,000 ML IV SCH ×2 (07:30→15:04)
[2017-08-19] MEDS: PROVENTIL INHALER 6.7 G (200 INHALATIONS) INH SCH ×2 (07:32→19:12)
[2017-08-19] MEDS: Polyethylene Glycol 3350 17 GM Packet PO SCH (09:03)
[2017-08-19] MEDS: Citalopram 20 MG TAB PO SCH (09:03)
[2017-08-19 11:42] LABS: Bilirubin Negative (Negative); Blood, Urine Moderate (Negative); Clarity CLEAR (Clear); Glucose, Urine (Dipstick) Negative (Negative); Leukocyte Negative (Negative); Nitrite Negative (Negative); Protein, Urine (Dipstick) Negative (Neg-Trace); Specific Gravity, Urine 1.024 (1.002-1.036); Urobilinogen 0.2 mg/dL (0.2-1.0)
[2017-08-19 11:50] LABS: Bacteria/HPF None Seen HPF (None Seen); Hyaline Casts/LPF 0-3 HYALINE CAST LPF (0-3 Hyaline); Squamous Epithelial None Seen HPF (0-3); WBC/HPF 0-3 HPF (0-3)
[2017-08-19 11:51] LABS: Amphetamine Not Detected (NotDetected); Barbiturates Screen Not Detected (NotDetected); Benzodiazepine Screen Not Detected (NotDetected); Cocaine Metabolite Screen Detected (NotDetected); Medtox Control Line Valid? VALID (VALID); Medtox Reader # READER 1; Methadone Not Detected (NotDetected); Methamphetamine Not Detected (NotDetected); Opiate Screen Not Detected (NotDetected); Oxycodone Screen Not Detected (NotDetected); Phencyclidine (PCP) Not Detected (NotDetected); THC/Cannabinoid Screen Not Detected (NotDetected); Tricyclic Screen Not Detected (NotDetected)
[2017-08-19] MEDS ORDERED: predniSONE 20 MG TAB PO SCH (15:45)
--- NOTE | 2017-08-19 16:42 | CON ---
DATE OF CONSULTATION: 08/19/2017 CARDIOLOGY CONSULTATION PRIMARY LOADING INSPECTOR: Salbador Mustafa M.D. REASON FOR CONSULTATION: Tachycardia. HISTORY OF PRESENT ILLNESS: Ms. Christy Gonzales is a 52-year-old woman. She has a history of pr evious chest pain thought to be demand ischemia related to cocaine use. The patient had an episode o f rapid heart rate yesterday requiring adenosine. Ms. Gonzales states she just was not feeling well yesterday. She had the sensation over being unable to get a good deep breath. Eventually, she went to a friend's house where they called an ambulance. By report, she was given intravenous adenosine for which she had a heart rate of 190. She was give n 6 mg of adenosine. She states after she got that she states "I felt worse for just a brief second, then I felt better and I'm okay since then." She occasionally has occasional chest pain since then, but nothing like which she was having yesterday. MEDICATIONS: 1. Celexa 2. Symbicort. 3. Naproxen 4. Albuterol inhaler. 5. Atorvastatin. 6. Tramadol. 7. Zyprexa. SOCIAL HISTORY: She states she did use cocaine 3 days ago. She said she is off of it for a month an d up until a month ago, then she "got in again with the wrong crowd." ALLERGIES: None known. PAST MEDICAL HISTORY: She had a history of non-ST elevation infarction, thought to be related to tristian carolyn in April, peak troponin was 0.938. Stress test was normal. REVIEW OF SYSTEMS: Constitutional: No significant weight gain or loss. She is very thin, however. Vision: No changes. Hearing: No changes. Pulmonary: Positive for shortness of breath. Cardiac: As outlined above. Gastrointestinal: No nausea, vomiting, diarrhea. Skin: No rashes. Neurologi c: No unilateral weakness or numbness. Psychiatric: No unusual depression or anxiety. Hematologic : No unusual bruising. Genitourinary: No burning with urination. PHYSICAL EXAMINATION: GENERAL: A thin 52-year-old -[place]ir[place] woman. VITAL SIGNS: She is 5 foot 7 inches tall, 132 pounds. EYES: Sclerae nonicteric. Mouth mucous membranes moist. NECK: Supple, no lymphadenopathy. LUNGS: Diffuse expiratory wheezing. CARDIOVASCULAR: Normal S1, normal S2. There is no murmur, rub or gallop. ABDOMEN: Soft, nontender. EXTREMITIES: No clubbing or cyanosis. There is no edema. PSYCHIATRIC: Mood and affect normal. NEUROLOGIC: Grossly normal. SKIN: Warm and dry. Peripheral pulses, she has good dorsalis pedis pulses bilaterally. LABORATORY DATA AND X-RAY FINDINGS: Peak troponin 0.033 and low indeterminate range. EKG does not s how any acute changes. It shows to be a left posterior fascicular block, but I think it is probably lead reversal. The pattern is not present on followup EKG. ASSESSMENT: 1. Tachycardia by report responding to adenosine, probably supraventricular tachycardia. 2. History of cocaine abuse, last she said was 3 days ago. She is positive on a drug screen. 3. Reactive airway disease and wheezing. PLAN: 1. Continue inhaled bronchodilators. 2. Consult Electrophysiology about the possibility of ablation. 3. Dr. Mustafa to resume patient's care tomorrow.
[2017-08-19] MEDS: Amoxicillin/Potassium Clav 875 MG TAB PO SCH (20:24)
[2017-08-19] MEDS: Atorvastatin Calcium 10 MG TAB PO SCH (20:25)
[2017-08-19] MEDS: OLANZapine 5 MG TAB PO SCH (20:25)
--- NOTE | 2017-08-20 00:01 | HP ---
DATE OF ADMISSION: 08/18/2017 CHIEF COMPLAINT: Chest pain, shortness of breath, palpitations. HISTORY OF PRESENT ILLNESS: Ms. Gonzales is a 52-year-old -J[place] female with past medical history of COPD, bipolar disorder, polysubstance abuse, who started having some chest discomfort, rodri rtness of breath, started to have pain in the chest, which is in the retrosternal area, pressure-like , nonradiating, associated with some shortness of breath as well. The patient took some Symbicort an d then rode her bike to friend's house and became more short of breath, and also felt the heart was b eating fast. Because of these symptoms, patient called the EMS. EMS found the patient with heart ra te of 190s, possible SVT, the patient was given adenosine 6 mg and she converted to sinus rhythm. In the ER, the patient had blood pressure of 98/60 and heart rate of 82. In view of her new onset SVT, the patient is being admitted for further evaluation and management. PAST MEDICAL HISTORY: 1. COPD. 2. Bipolar disorder. 3. Polysubstance abuse. 4. Tobacco abuse. 5. History of lupus. 6. Chronic back pain. 7. History of gastrointestinal bleeding. PAST SURGICAL HISTORY: 1. Status post umbilical hernia repair. 2. Status post thumb surgery. 3. Status post cervical biopsy. 4. Status post EGD and colonoscopy in April 2017 for gastrointestinal bleeding. ALLERGIES: NKDA. CURRENT MEDICATIONS: The patient is on albuterol inhaler b.i.d., Lipitor 10 mg daily, Symbicort 160/ 4.5 one puff b.i.d., Celexa 20 mg daily, naproxen p.r.n., and Zyprexa 20 mg daily, MiraLax daily, and tramadol p.r.n. FAMILY HISTORY: Nothing of interest. SOCIAL HISTORY: Patient lives with family. Smokes 1 pack a day. Uses cocaine. REVIEW OF SYSTEMS: Cardiovascular: Has chest pain and shortness of breath. Respiratory: No fever or cough. Gastrointestinal: Has abdominal discomfort, no nausea, no vomiting. Central nervous syst em: No headache, feels dizzy. PHYSICAL EXAMINATION: GENERAL: The patient is alert, awake, oriented x3. VITAL SIGNS: Temperature 98, pulse 68, respirations 20, blood pressure initially 117/60, then droppe d to 90/50. HEENT: Head is normocephalic, atraumatic. Pupils equal and reactive to light. Nasopharynx is pale and dry. Hard and soft palate, no lesions seen. SKIN: Skin turgor decreased. NECK: Supple. No JVD. LUNGS: Breath sounds diminished bilaterally. Percussion not dull bilaterally. Expiratory wheeze pr esent. HEART: S1, S2 regular. ABDOMEN: Soft, no distention, no tenderness. Normal bowel sounds. RECTAL: Deferred. CENTRAL NERVOUS SYSTEM: No focal neurological deficit. LABORATORY AND X-RAY FINDINGS: CBC shows WBC 4.4, hemoglobin 10, hematocrit 34, platelets 340. Coamo bolic panel shows sodium 139, potassium 3.8, chloride 99, CO2 17, BUN 19, creatinine 0.9, glucose 111 , CK-MB 4.2, troponin I less than 0.010. Urinalysis negative. Urine toxicology screen positive for cocaine. Chest x-ray negative. EKG shows normal sinus rhythm, no acute ST-T wave changes seen. The strip from the EMS showed SVT. ASSESSMENT: 1. Supraventricular tachycardia, symptomatic, but converted to normal sinus. 2. Chronic obstructive pulmonary disease acute exacerbation. 3. Polysubstance abuse including cocaine. 4. Bipolar disorder. 5. Chronic back pain. 6. Hypotension. PLAN: 1. Vital signs q.4 hours. 2. Activity: As tolerated. 3. Allergies: NKDA. 4. IV fluids bolus, then 100 mL per hour. 5. Cardiology consult. 6. Continue home medicines. 7. Prednisone daily. 8. DuoNeb q.i.d.
[2017-08-20] MEDS: Sodium Chloride 0.9% 1,000 ML IV SCH (04:35)
[2017-08-20] MEDS: PROVENTIL INHALER 6.7 G (200 INHALATIONS) INH SCH ×2 (08:55→20:58)
[2017-08-20] MEDS: Mometasone/Formoterol 120 PUFF INHALER INH SCH ×2 (08:56→20:55)
[2017-08-20] MEDS ORDERED: FLU VACC QS2017-18 36 mo. & older 0.5 ML SYRINGE IM ONE (09:00)
[2017-08-20] MEDS: Amoxicillin/Potassium Clav 875 MG TAB PO SCH ×2 (09:40→20:57)
[2017-08-20] MEDS: Citalopram 20 MG TAB PO SCH (09:40)
[2017-08-20] MEDS: traMADol HCl 50 MG TAB PO PRN ×2 (09:41→23:04)
[2017-08-20] MEDS: Polyethylene Glycol 3350 17 GM Packet PO SCH (09:44)
--- NOTE | 2017-08-20 12:04 | CON ---
DATE OF CONSULTATION: 08/20/2017 ELECTROPHYSIOLOGY CONSULTATION REPORT REFERRING PHYSICIAN: Dr. Santamaria I am seeing Ms. Gonzales at our [facility] telemetry floor as an electrophysiology consultan t. Her problems are: 1. Paroxysmal tachy palpitations, possibly supraventricular tachycardia. A. Good response to adenosine. 2. History of coronary artery disease with prior myocardial infarction. 2A. History of nuclear stress test 04/28/2017 with normal perfusion and LVEF 25%. 2B. 2D echo 04/26/2017 showing 50-55%, moderate aortic regurgitation, mild TR, mild MR. 3. History of hypertension. 4. History of tobacco abuse. 5. History of lupus. 6. Prior history of polysubstance abuse. 7. History of chronic obstructive pulmonary disease. 8. History of chronic back pain. ALLERGIES: None. MEDICATIONS: At home include albuterol, Lipitor, Symbicort, Celexa, Naproxen, Zyprexa, Marlex and Tr amadol. SUBJECTIVE: Ms. Gonzales is here due to recurrent chest palpitations. She had associated palpitatio ns in April when she was followed by Dr. Mustafa and the presence of a non-ST elevation myocard ial infarction with negative stress test and echocardiogram as noted above. She also has been noted to have anemia at that time. Now this time she presented with similar palpitations just as she claim s it happened last time. Palpitations very rapid, 180 to 190 according to her. Eventually stopped b y the EMS with an injection which sounds like adenosine. Since then she is doing better. She has mi nor pleuritic like discomfort, but no typical angina noted. No stroke-like symptoms, no neurological deficits, no fever, chills or cough. The rest of the 12 point system otherwise unremarkable. PAST MEDICAL HISTORY: As above. Also, history of bipolar disorder as well apart from what is noted above, history of GI bleeding. Also last time. SOCIAL HISTORY: The patient has history of smoking and history of cocaine abuse. FAMILY HISTORY: Noncontributory. PAST SURGICAL HISTORY: Significant for umbilical hernia, tonsil, cervix cone biopsy and EGD in 04/24 17 for gastrointestinal bleed. OBJECTIVE: VITAL SIGNS: On arrival on 08/18/2017 blood pressure was 170/68, heart rate 68, respirations 18, tem perature 97.7 degrees Fahrenheit. GENERAL: Alert and oriented woman in no apparent distress. NECK: Supple. Jugular veins are not distended. CHEST: Coarse without crackles. CARDIOVASCULAR: Heart sounds are regular rate and rhythm. No murmur or gallop. ABDOMEN: Benign. Bowel sounds positive. EXTREMITIES: Lower extremities without edema, clubbing or cyanosis. DATABASE: The EKG available to me reveals sinus rhythm with possibly lead reversal with abnormal axi s. Subsequent EKGs reveal sinus rhythm as well, normal CA, no Delta waves are documented. LABORATORY DATA: White count 4.4, hemoglobin 10.5, platelet count is 340. Sodium 139, potassium 3.8 , BUN is 19, creatinine 0.84, AST, ALT is 47 and 26. Troponins are 0.01, 0.03 and 0.029 consecutivel y. The tox screen reveals positive cocaine metabolites. ASSESSMENT AND PLAN: 1. Ms. Gonzales is a 52-year-old woman with prior history of myocardial infarction, cocaine use, rec ent negative stress test with preserved LV function, chronic obstructive pulmonary disease, chronic a nemia, and history of gastrointestinal bleed. She is presenting with recurrent palpitations which by history are likely supraventricular tachycardia responding to adenosine. I did discuss the potential treatment options with her. Currently medications are optional, although due to her history of cocaine use at this point would not use beta blockers. On the other hand, we could consider a calcium channel cyndy as an alternative. On the other hand she is interested in p roceeding with a more detailed EP evaluation with EP study and possible ablation options also detaile d to her. We discussed the chance of peripheral and intra-pericardial bleeds, AV block recurrence, s trokes were discussed. We will plan to proceed with EP study and possible ablation today. 2. Cocaine abuse. Could also have contributed to triggering these arrhythmias. She was strongly ad vised to quit. 3. Atypical chest pain, in view of the setting of the stress test, doubt acute ischemia. 4. Mild chronic anemia unchanged.
[2017-08-20] MEDS ORDERED: Lidocaine 1% PF 5 ML VIAL ONE (14:16)
[2017-08-20] MEDS ORDERED: PHENYLEPHRINE-NS 100 MCG/ML 10 ML SYRINGE ONE (14:16)
[2017-08-20] MEDS ORDERED: Midazolam HCl 2 mg/2 ml Vial ONE (15:47)
[2017-08-20] MEDS ORDERED: Fentanyl 100 MCG/2 ML VIAL ONE (15:47)
[2017-08-20] MEDS ORDERED: Propofol 500 MG/50 ML VIAL ONE ×2 (16:07→18:02)
[2017-08-20] MEDS ORDERED: Isoproterenol 0.2 MG/1 ML AMP ONE (17:25)
[2017-08-20] MEDS ORDERED: Bisacodyl 5 MG TAB PO PRN (19:40)
[2017-08-20] MEDS ORDERED: Nitroglycerin 0.4 MG TAB (25 Tab Bottle) SL PRN (19:40)
[2017-08-20] MEDS ORDERED: Bisacodyl 10 MG SUPP PR PRN (19:40)
[2017-08-20] MEDS ORDERED: Ondansetron HCl/PF 4 MG/2 ML Vial IVP PRN (19:40)
[2017-08-20] MEDS ORDERED: Silver Sulfadiazine 1% Cream 50 GM JAR TOP PRN (19:40)
[2017-08-20] MEDS ORDERED: diphenhydrAMINE 25 MG CAP PO PRN (19:40)
[2017-08-20] MEDS ORDERED: Temazepam 15 MG CAP PO PRN (19:40)
[2017-08-20] MEDS: OLANZapine 5 MG TAB PO SCH (20:58)
[2017-08-20] MEDS: Atorvastatin Calcium 10 MG TAB PO SCH (20:58)
--- NOTE | 2017-08-21 06:22 | CCL ---
DATE OF SERVICE: 08/20/2017 COMPREHENSIVE ELECTROPHYSIOLOGY STUDY AND RADIOFREQUENCY ABLATION REPORT REQUESTING PHYSICIAN: Cindy Santamaria M.D. REASON FOR PROCEDURE: Ms. Gonzales is a 52-year-old female, who has a history of polysubstance abuse, also myocardial infarction not too long ago, but she is presenting with recurrent palpitations and chest pains at this point. Ambulance documented SVT, which terminated with adenosine. PROCEDURE: The patient received deep sedation by Anesthesia specialist. After adequate level of sedation achieved, the left femoral vein was prepped, draped, and anesthetized using subcutaneous lidocaine and 6 and 8 Ghanaian short sheath was introduced. Through these a 6 Ghanaian decapolar and a 7 Ghanaian decapolar catheter was advanced to the right ventricle His bundle and right atrial position, The CS catheter was positioned in the CS. Pacing, mapping, and recording were performed in each location. Following that typical AV erin reentrant tachycardia was induced with cycle length 345 milliseconds. HV appears to be normal, although right bundle abrasion was seen during tachycardia. Following that tachycardia was easily inducible and terminable with both burst atrial and ventricular pacing. A dual AV erin physiology was noted during the burst atrial pacing. Following that, one of the decapolar was exchanged to a quadripolar HIS catheter for better positioning and the right femoral vein, this area was prepped, draped, and anesthetized with subcutaneous lidocaine and with ultrasound guidance, the right femoral vein was also accessed and an 8 Ghanaian short sheath was introduced. Through this, a 4 mm half-curved ablation catheter was advanced to the His bundle area, mapping of the His bundle and slow pathway modification was performed using 40 sinclair, 50 degrees settings total of 4 boothe with maximum duration of about 2 minutes. Post-ablation, no inducibility of the tachycardia was noted. On Isuprel recurrent inducibility was noted, and repeat ablation on the slow pathway area eventually rendered the tachycardia inducible. MEASUREMENTS: Baseline cycle lengths 761, AR 103, QRS 86, QT 395, HV 40 milliseconds, no preexcitation, AV Wenckebach cycle length of 300, retrograde Wenckebach cycle length of 280, Atrial ERP was achieved. Actually, we did not demonstrate AV erin dual physiology likely due to the relatively high atrial ERP.During burst atrial pacing observed. CONCLUSION: 1. Easily inducible AV erin reentrant tachycardia. 2. Slow pathway modification eventually eliminated the SVT. 3. Right bundle ablation with normal HV interval during tachycardia seen. 4. No accessory pathway demonstrated. 5. Normal AV erin function, pre- and post-ablation demonstrated. POS: DANIELLE HENRY
[2017-08-21] MEDS: PROVENTIL INHALER 6.7 G (200 INHALATIONS) INH SCH ×2 (06:46→18:22)
[2017-08-21] MEDS: Mometasone/Formoterol 120 PUFF INHALER INH SCH ×2 (06:53→20:23)
[2017-08-21] MEDS: traMADol HCl 50 MG TAB PO PRN ×3 (08:26→22:34)
[2017-08-21] MEDS: Amoxicillin/Potassium Clav 875 MG TAB PO SCH ×2 (08:27→22:34)
[2017-08-21] MEDS: Polyethylene Glycol 3350 17 GM Packet PO SCH (08:27)
[2017-08-21] MEDS: Citalopram 20 MG TAB PO SCH (08:27)
[2017-08-21] MEDS: Mag-Al 1200 mg/1200 mg/30 ML UDCUP PO PRN (12:22)
--- NOTE | 2017-08-21 15:04 | PRG ---
DATE OF SERVICE: 08/21/2017 SUBJECTIVE: Ms. Gonzales today appears anxious. She states her heart rate increased. She required neb treatment. She underwent successful SVT ablation yesterday. On review of telemetry monitoring, it appeared she was in sinus tachycardia. OBJECTIVE: VITAL SIGNS: Blood pressure 114/63, pulse 82, respirations 20. LUNGS: Clear to auscultation. CARDIAC: Regular rate and rhythm. ABDOMEN: Soft, nontender, and nondistended. EXTREMITIES: No edema. IMPRESSION: 1. Supraventricular tachycardia. 2. Shortness of breath. RECOMMENDATIONS: Ms. Gonzales recently underwent ablation and appears to be in sinus rhythm. No rec urrent episodes of SVT. The patient states she last used cocaine 2 days ago. She continues to smoke . Continue with neb treatment. She appears to be improving. Once stable, it would be okay for disc harge from my standpoint.
[2017-08-21 17:47] LABS: #Eosinphils 0.1 thou/uL (0.0-0.7); #Lymphocytes 1.6 thou/uL (1.20-3.40); #Monocytes 0.3 thou/uL (0.11-0.59); #Neutrophils 2.1 thou/uL (1.40-6.50); %Basophils 0.7 % (0.0-1.0); %Lymphocytes 38.5 % (21.0-51.0); %Monocytes 7.5 % (0.0-10.0); %Neutrophils 51.2 % (42.0-75.0); Hemoglobin 9.7 g/dL (12.0-16.0); Mean Corpuscular HGB CONC 30.9 g/dL (32.0-36.0); Mean Corpuscular Hemoglobin 25.7 pg (27.0-31.0); Mean Corpuscular Volume 83.4 fl (81.0-99.0); Mean Platelet Volume 7.6 fL (7.4-10.4); Platelet Count 327 thou/uL (130-400); RBC Distribution Width 16.2 % (11.5-14.5); Red Blood Cell (RBC) Count 3.75 mill/uL (4.20-5.40)
[2017-08-21 18:00] LABS: Anion Gap 13 mmol/L (10-20); BUN (Urea Nitrogen) 16 mg/dL (7.0-18.7); Calc. Creatinine Clearance 78 mL/min (70-130); Calcium 9.6 mg/dL (7.8-10.44); Carbon Dioxide 25 mmol/L (22-29); Chloride 104 mmol/L (98-107); Estimated GFR-MDRD 88; Glucose 105 mg/dL (70-105); Potassium 3.7 mmol/L (3.5-5.1); Sodium 138 mmol/L (136-145)
[2017-08-21 18:08] LABS: Troponin I 0.429 ng/mL (< 0.028)
--- NOTE | 2017-08-21 18:30 | PRG ---
DATE OF SERVICE: 08/21/2017 REFERRING PHYSICIAN: Dr. Mustafa and Dr. Santamaria. SUBJECTIVE: Ms. Gonzales seems to be doing well, one day post-procedure. She has minor groin discomfort. OBJECTIVE: VITAL SIGNS: Blood pressure is 114/63, heart rate 107, respirations 18, temperature 97.7 degrees Fahrenheit. GENERAL: Alert and oriented woman, in no apparent distress. NECK: Supple. Jugular veins not distended. CHEST: Coarse, no crackles. CARDIOVASCULAR: Heart sounds are regular to rate and rhythm. No murmur or gallop. ABDOMEN: Benign. Bowel sounds positive. EXTREMITIES: Lower extremities without edema, clubbing or cyanosis. Bilateral catheter insertion sites are without significant reaction. DATABASE: Telemetry strips revealed no further SVT sinus rhythm. ASSESSMENT AND PLAN: Ms. Christy Gonzales is a 52-year-old woman who has history of cocaine use, but also has EMS documented supraventricular tachycardia , which was adenosin terminated. She underwent an EP study demonstrating AV erin reentrant tachycardia and the slow pathway was ablated rendering the arrhythmia non-inducible. At this point, she is doing well one day post-ablation. I think she is reasonable to discharge. She is welcome to follow up in our office in 6 weeks or earlier if symptoms dictate. Avoid heavy lifting or sit ups for next 2 weeks until groin sites healed. CARL
[2017-08-21] MEDS ORDERED: Morphine 4 MG/ML Carpuject SLOW IVP PRN (18:43)
[2017-08-21 20:45] LABS: Critical Call Chem Troponin I RESULT DECREASING; Troponin I 0.399 ng/mL (< 0.028)
[2017-08-21] MEDS: OLANZapine 5 MG TAB PO SCH (22:34)
[2017-08-21] MEDS: Atorvastatin Calcium 10 MG TAB PO SCH (22:34)
[2017-08-21] MEDS: Acetaminophen 325 MG TAB PO PRN (22:35)
[2017-08-21 23:31] LABS: Critical Call Chem Troponin I RESULT DECREASING; Troponin I 0.381 ng/mL (< 0.028)
--- NOTE | 2017-08-22 00:51 | EKG ---
Test Reason : POST-OP Blood Pressure : / mmHG Vent. Rate : 077 BPM Atrial Rate : 077 BPM P-R Int : 140 ms QRS Dur : 080 ms QT Int : 390 ms P-R-T Axes : 069 068 053 degrees QTc Int : 441 ms Normal sinus rhythm Normal ECG When compared with ECG of 18-AUG-2017 15:20, (Unconfirmed) T wave inversion no longer evident in Lateral leads Confirmed by SHANNON CASTILLO, SCheryl ([id number]) on 08/22/2017 12:51:10 AM Referred By: KOSTA Confirmed By:DR. Sameer ORTEGA MD
--- NOTE | 2017-08-22 00:52 | EKG ---
Test Reason : Blood Pressure : / mmHG Vent. Rate : 059 BPM Atrial Rate : 059 BPM P-R Int : 134 ms QRS Dur : 084 ms QT Int : 436 ms P-R-T Axes : 063 066 059 degrees QTc Int : 431 ms Sinus bradycardia Otherwise normal ECG Confirmed by SHANNON CASTILLO, DR. Estrella ([id number]) on 08/22/2017 12:51:48 AM Referred By: [facility] Confirmed By:DR. Sameer ORTEGA MD
[2017-08-22 06:09] LABS: #Eosinphils 0.1 thou/uL (0.0-0.7); #Lymphocytes 1.1 thou/uL (1.20-3.40); #Monocytes 0.3 thou/uL (0.11-0.59); #Neutrophils 1.3 thou/uL (1.40-6.50); %Basophils 0.5 % (0.0-1.0); %Eosinophils 3.5 % (0.0-10.0); %Lymphocytes 38.7 % (21.0-51.0); %Neutrophils 47.2 % (42.0-75.0); Hemoglobin 9.4 g/dL (12.0-16.0); Mean Corpuscular HGB CONC 30.5 g/dL (32.0-36.0); Mean Corpuscular Hemoglobin 25.1 pg (27.0-31.0); Mean Corpuscular Volume 82.4 fl (81.0-99.0); Mean Platelet Volume 7.4 fL (7.4-10.4); Platelet Count 276 thou/uL (130-400); Red Blood Cell (RBC) Count 3.75 mill/uL (4.20-5.40); White Blood Cell (WBC) Count 2.8 thou/uL (4.8-10.8)
[2017-08-22 06:30] LABS: Anion Gap 12 mmol/L (10-20); BUN (Urea Nitrogen) 17 mg/dL (7.0-18.7); Calc. Creatinine Clearance 87 mL/min (70-130); Calcium 8.8 mg/dL (7.8-10.44); Carbon Dioxide 25 mmol/L (22-29); Chloride 106 mmol/L (98-107); Estimated GFR-MDRD Greater than 90; Glucose 93 mg/dL (70-105); Sodium 139 mmol/L (136-145)
[2017-08-22 06:36] LABS: Troponin I 0.297 ng/mL (< 0.028)
[2017-08-22] MEDS: PROVENTIL INHALER 6.7 G (200 INHALATIONS) INH SCH ×2 (08:17→19:44)
[2017-08-22] MEDS: Mometasone/Formoterol 120 PUFF INHALER INH SCH ×2 (08:18→19:47)
[2017-08-22] MEDS: traMADol HCl 50 MG TAB PO PRN ×3 (09:13→20:49)
[2017-08-22] MEDS: Citalopram 20 MG TAB PO SCH (09:15)
[2017-08-22] MEDS: Amoxicillin/Potassium Clav 875 MG TAB PO SCH ×2 (09:15→20:47)
[2017-08-22] MEDS: Polyethylene Glycol 3350 17 GM Packet PO SCH (09:15)
[2017-08-22] MEDS: Acetaminophen 325 MG TAB PO PRN ×2 (09:18→13:51)
[2017-08-22 10:32] LABS: CKMB 1.8 ng/mL (0-6.6)
--- NOTE | 2017-08-22 13:36 | PRG ---
DATE OF SERVICE: 08/22/2017 SUBJECTIVE: Ms. Gonzales is essentially doing well 2 days after her EP study and the ablation. Alth ough she has occasional palpitations, no sustained tachyarrhythmia was observed. OBJECTIVE DATA: VITAL SIGNS: Blood pressure is 92/52, heart rate 62, respiratory rate 18. The patient is afebrile, temperature 97.8 degrees Fahrenheit. GENERAL: She is alert and oriented woman in no apparent distress. NECK: Supple. Jugular veins not distended. CHEST: With some wheezing and coarse breath sounds are heard. No crackles. HEART: Regular rate and rhythm. No murmur or gallop. ABDOMEN: Benign. Bowel sounds positive. EXTREMITIES: Lower extremities without edema, clubbing or cyanosis. LABORATORY DATA: White cell count is reduced to 2.8 today, hemoglobin 9.4, platelet count is 276. S odium 139, potassium 4, BUN is 17, creatinine 0.74, troponin levels are 0.399, 0.381 and 0.297, decre asing since the ablation. ASSESSMENT AND PLAN: 1. Ms. Gonzales is a pleasant 52-year-old woman with a history of cocaine use as well as paroxysmal supraventricular tachycardia. 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 2. Continued efforts to correct infection symptoms on nebulizers, also low white cell count. I susp ect she might have a viral condition as per primary team. 3. Routine followup is requested. For now, no complications from the ablation was observed.
--- NOTE | 2017-08-22 19:52 | EKG ---
Test Reason : SOB
[2017-08-22] MEDS: OLANZapine 5 MG TAB PO SCH (20:46)
[2017-08-22] MEDS: Atorvastatin Calcium 10 MG TAB PO SCH (20:47)
[2017-08-23] MEDS: traMADol HCl 50 MG TAB PO PRN ×3 (01:54→16:24)
[2017-08-23] MEDS: Acetaminophen 325 MG TAB PO PRN ×3 (01:54→16:25)
[2017-08-23 08:22] VITALS: BP 102/65; TEMP 96.7
[2017-08-23] MEDS: Polyethylene Glycol 3350 17 GM Packet PO SCH (08:43)
[2017-08-23] MEDS: Amoxicillin/Potassium Clav 875 MG TAB PO SCH (08:43)
[2017-08-23] MEDS: Citalopram 20 MG TAB PO SCH (08:43)
[2017-08-23] MEDS: PROVENTIL INHALER 6.7 G (200 INHALATIONS) INH SCH ×2 (08:47→19:21)
[2017-08-23] MEDS: Mometasone/Formoterol 120 PUFF INHALER INH SCH ×2 (08:49→19:22)
--- NOTE | 2017-08-23 10:39 | PDOC.CTH ---
<Nuha Clinton - Last Filed: 08/23/17 13:13> Cardiology Progress Note - Subjective EP progress note Patient resting comfortably in bed. C/O continued chest discomfort, which is lessening, and relieved by breathing treatments. Denies dizziness, light headedness, passing out, or palpitations. Denies pain or problems with groin access site. She reports anticipating discharge today. - ROS chest pain (atypical, resovles with breathing treatments) - Objective Vital Signs Temp Pulse Resp BP BP BP Pulse Ox 08/23/17 08:49 79 20 99 08/23/17 08:47 79 20 99 08/23/17 08:00 96.7 F L 77 12 102/65 95 08/23/17 04:00 97.3 F L 74 14 104/55 L 91 L 08/23/17 00:00 98 F 70 29 H 91/51 L 90 L Admit Weight 132 lb 12.8 oz Weight 134 lb 1.6 oz 08/22/17 08/23/17 08/24/17 06:59 06:59 06:59 Intake Total 1200 Balance 1200 - Physical Examination General/Neuro: alert & oriented x3, NAD Neck: no JVD present Lungs: unlabored respirations, other: (expiratory wheeze bilaterally) Heart: RRR Abdomen: no HSM, NT/ND - Telemetry Telemetry Rhythm: SR - Labs Result Diagrams: 08/22/17 05:52 08/22/17 05:52 Troponin/CKMB CK-MB (CK-2) 1.8 ng/mL (0-6.6) 08/22/17 09:52 Troponin I 0.297 ng/mL (< 0.028) H 08/22/17 05:52 - Assessment/Plan Paroxysmal SVT- Patient underwent EPS with slow pathway ablation for AVNRT earlier this week. Arrhythmia without recurrence. Maintaining sinus rhythm on tele monitor. Groin access site without hematoma and healed. Discharge planning- OK for DC by EP. Request routine followup with EP in 4-6 weeks after discharge Thank you for allowing us to participate with the care of the patient <Mahendra Matt - Last Filed: 08/23/17 16:31> Cardiology Progress Note - Objective Vital Signs Temp Pulse Resp BP Pulse Ox 08/23/17 08:49 79 20 99 08/23/17 08:47 79 20 99 08/23/17 08:00 96.7 F L 79 20 102/65 95 Admit Weight 132 lb 12.8 oz Weight 134 lb 1.6 oz 08/22/17 08/23/17 08/24/17 06:59 06:59 06:59 Intake Total 1200 Balance 1200 - Labs Result Diagrams: 08/22/17 05:52 08/22/17 05:52 Troponin/CKMB CK-MB (CK-2) 1.8 ng/mL (0-6.6) 08/22/17 09:52 Troponin I 0.297 ng/mL (< 0.028) H 08/22/17 05:52 Attending Addendum - Attending Addendum I personally evaluated the patient and discussed the management with Mrs Clinton. I agree with the History, Examination, Assessment and Plan documented above.
--- NOTE | 2017-08-23 14:08 | PRG ---
DATE OF SERVICE: 08/23/2017 SUBJECTIVE: Ms. Gonzales today states she is better. Her chest pain has nearly resolved. She was s een resting comfortably. PHYSICAL EXAMINATION: VITAL SIGNS: Blood pressure 104/55, pulse 77, temperature 96.7. LUNGS: Clear to auscultation. HEART: Regular rate and rhythm. ABDOMEN: Soft, nontender, and nondistended. EXTREMITIES: No edema. IMPRESSION: Pericardial pain. RECOMMENDATIONS: May be due to recent SVT ablation. Her symptoms have improved. Would recommend no nsteroidal therapy and PPI. Her recent echo suggested a normal LVEF with no wall motion abnormalitie s. It will be okay from my standpoint to discharge home.
[2017-08-23] MEDS: Mag-Al 1200 mg/1200 mg/30 ML UDCUP PO PRN (19:53)
== END 2017-08-23 20:15 | disposition home or self-care (01) | DRG 274 ==
LOC: ERS 15:20 → 2NO 19:54
PROVIDERS: ADMIT Internal Medicine; ATTEND Internal Medicine
PROC: 02583ZZ Destruction of Conduction Mechanism, Percutaneous Approach (ICD-10-PCS; principal; 2017-08-20)
PROC: 02K83ZZ Map Conduction Mechanism, Percutaneous Approach (ICD-10-PCS; 2017-08-20)
PROC: 4A023FZ Measurement of Cardiac Rhythm, Percutaneous Approach (ICD-10-PCS; 2017-08-20)
PROC: 4A0234Z Measurement of Cardiac Electrical Activity, Percutaneous Approach (ICD-10-PCS; 2017-08-20)
DX: I47.1 Supraventricular tachycardia (principal); I95.9 Hypotension, unspecified; F17.210 Nicotine dependence, cigarettes, uncomplicated; F31.9 Bipolar disorder, unspecified; G89.29 Other chronic pain; M54.9 Dorsalgia, unspecified; I25.10 Atherosclerotic heart disease of native coronary artery without angina pectoris; I25.2 Old myocardial infarction; I10 Essential (primary) hypertension; D64.9 Anemia, unspecified; F14.10 Cocaine abuse, uncomplicated; R07.89 Other chest pain; J44.9 Chronic obstructive pulmonary disease, unspecified; Z85.41 Personal history of malignant neoplasm of cervix uteri; F12.10 Cannabis abuse, uncomplicated
CPT/HCPCS: 36415; 71045; 76942; 80048; 80053; 80306; 81003; 81015; 82553; 84484; 85025; 90471; 90682; 93005; 93010; 93306; 93609; 93623; 93653; 94640; 94760; 96374; A4216; C1730; C1733; G0008; J1644; J1885; J2001; J2250; J2704; J3010; J7506; J7620; Q2036

== ENCOUNTER 2018-01-07 03:00 | Emergency (ER) | payer OTHER ==
[2018-01-07] MEDS ORDERED: Acetaminophen 500 MG TAB ONE ×2 (03:54→13:28)
[2018-01-07 04:09] LABS: #Lymphocytes 0.7 thou/uL (1.20-3.40); #Monocytes 0.2 thou/uL (0.11-0.59); #Neutrophils 1.7 thou/uL (1.40-6.50); %Basophils 0.2 % (0.0-1.0); %Eosinophils 0.2 % (0.0-10.0); %Lymphocytes 24.8 % (21.0-51.0); %Monocytes 8.1 % (0.0-10.0); %Neutrophils 66.8 % (42.0-75.0); Hemoglobin 9.6 g/dL (12.0-16.0); Mean Corpuscular HGB CONC 31.6 g/dL (32.0-36.0); Mean Corpuscular Hemoglobin 25.7 pg (27.0-31.0); Mean Corpuscular Volume 81.4 fl (81.0-99.0); Mean Platelet Volume 7.9 fL (7.4-10.4); Platelet Count 275 thou/uL (130-400); RBC Distribution Width 16.5 % (11.5-14.5); Red Blood Cell (RBC) Count 3.73 mill/uL (4.20-5.40); White Blood Cell (WBC) Count 2.6 thou/uL (4.8-10.8)
[2018-01-07 04:23] LABS: Amphetamine Not Detected (NotDetected); Barbiturates Screen Not Detected (NotDetected); Benzodiazepine Screen Not Detected (NotDetected); Cocaine Metabolite Screen Detected (NotDetected); Medtox Control Line Valid? VALID (VALID); Medtox Reader # READER 1; Methadone Not Detected (NotDetected); Methamphetamine Not Detected (NotDetected); Opiate Screen Not Detected (NotDetected); Oxycodone Screen Not Detected (NotDetected); Phencyclidine (PCP) Not Detected (NotDetected); THC/Cannabinoid Screen Not Detected (NotDetected); Tricyclic Screen Not Detected (NotDetected)
[2018-01-07 04:31] LABS: ALT (SGPT) 29 U/L (8-55); AST (SGOT) 47 U/L (5-34); Acetaminophen Less than 6.0 mcg/mL (10.0-30.0); Alcohol 119 mg/dL (Less than 10); Alkaline Phosphatase 62 U/L (40-150); Anion Gap 13 mmol/L (10-20); BUN (Urea Nitrogen) 9 mg/dL (7.0-18.7); Bilirubin, Total 0.4 mg/dL (0.2-1.2); Calc. Creatinine Clearance 0 mL/min (70-130); Calcium 8.7 mg/dL (7.8-10.44); Carbon Dioxide 22 mmol/L (22-29); Chloride 108 mmol/L (98-107); Estimated GFR-MDRD Greater than 90; Globulin 3.7 g/dL (2.4-3.5); Glucose 94 mg/dL (70-105); Protein, Total 7.7 g/dL (6.0-8.3); Salicylate Less than 8.0 mg/dL (15.0-30.0); Sodium 140 mmol/L (136-145)
[2018-01-07 04:35] LABS: Potassium 2.9 mmol/L (3.5-5.1)
[2018-01-07] MEDS ORDERED: Potassium Chloride 20 MEQ TAB ONE ×2 (04:58→19:00)
[2018-01-07 15:27] LABS: ALT (SGPT) 27 U/L (8-55); AST (SGOT) 49 U/L (5-34); Albumin 3.5 g/dL (3.5-5.0); Alcohol Less than 10 mg/dL (Less than 10); Alkaline Phosphatase 62 U/L (40-150); Anion Gap 8 mmol/L (10-20); BUN (Urea Nitrogen) 12 mg/dL (7.0-18.7); Bilirubin, Total 0.3 mg/dL (0.2-1.2); Calc. Creatinine Clearance 0 mL/min (70-130); Calcium 8.9 mg/dL (7.8-10.44); Carbon Dioxide 29 mmol/L (22-29); Chloride 105 mmol/L (98-107); Estimated GFR-MDRD Greater than 90; Globulin 3.3 g/dL (2.4-3.5); Glucose 98 mg/dL (70-105); Potassium 3.2 mmol/L (3.5-5.1); Protein, Total 6.8 g/dL (6.0-8.3); Sodium 139 mmol/L (136-145)
[2018-01-07] MEDS ORDERED: Mometasone/Formoterol 120 PUFF INHALER INH SCH (18:30)
[2018-01-07] MEDS ORDERED: Atorvastatin Calcium 10 MG TAB PO SCH (21:00)
[2018-01-07] MEDS ORDERED: Polyethylene Glycol 3350 17 GM Packet PO SCH (21:00)
[2018-01-08] MEDS ORDERED: OLANZapine 5 MG TAB PO SCH (09:00)
== END 2018-01-07 21:28 ==
LOC: ERS 03:00
DX: R45.851 Suicidal ideations (principal); R45.850 Homicidal ideations; Z71.6 Tobacco abuse counseling; M32.9 Systemic lupus erythematosus, unspecified; F17.210 Nicotine dependence, cigarettes, uncomplicated; M06.9 Rheumatoid arthritis, unspecified; J42 Unspecified chronic bronchitis; I47.1 Supraventricular tachycardia; F20.0 Paranoid schizophrenia; F31.9 Bipolar disorder, unspecified; Z85.41 Personal history of malignant neoplasm of cervix uteri; Z79.899 Other long term (current) drug therapy
CPT/HCPCS: 36415; 80053; 80306; 80307; 84443; 85025; 99406

== ENCOUNTER 2018-06-10 16:32 | Observation (INO) | payer OTHER ==
[~2018-06-10 16:32] MED LIST changes: -ISOVUE-370 76%-LOCM 1 ML ONE; +Iopamidol 370 76% 100 ML VIAL ONE
[2018-06-10 17:01] LABS: Bilirubin Small (Negative); Blood, Urine Trace (Negative); Clarity CLOUDY (Clear); Glucose, Urine (Dipstick) Negative (Negative); Leukocyte Large (Negative); Nitrite Negative (Negative); Protein, Urine (Dipstick) 30 mg/dL (Neg-Trace); Specific Gravity, Urine 1.031 (1.002-1.036)
[2018-06-10 17:04] LABS: Bacteria/HPF 2+ HPF (None Seen); Hyaline Casts/LPF 0-3 HYALINE CAST LPF (0-3 Hyaline); Pathc Cast-AUWi Flag 0.43 (0-2.49); Squamous Epithelial 0-3 HPF (0-3)
[2018-06-10 17:15] LABS: #Eosinphils 0.1 thou/uL (0.0-0.7); #Lymphocytes 1.4 thou/uL (1.20-3.40); #Monocytes 0.4 thou/uL (0.11-0.59); #Neutrophils 1.1 thou/uL (1.40-6.50); %Lymphocytes 46.2 % (21.0-51.0); %Monocytes 12.8 % (0.0-10.0); %Neutrophils 36.9 % (42.0-75.0); Hemoglobin 13.6 g/dL (12.0-16.0); Mean Corpuscular HGB CONC 33.3 g/dL (32.0-36.0); Mean Corpuscular Hemoglobin 33.7 pg (27.0-31.0); Mean Platelet Volume 6.4 fL (7.4-10.4); Platelet Count 300 thou/uL (130-400); RBC Distribution Width 11.8 % (11.5-14.5); Red Blood Cell (RBC) Count 4.02 mill/uL (4.20-5.40)
[2018-06-10 17:35] LABS: Amphetamine Not Detected (NotDetected); Barbiturates Screen Not Detected (NotDetected); Benzodiazepine Screen Not Detected (NotDetected); Cocaine Metabolite Screen Detected (NotDetected); Medtox Control Line Valid? VALID (VALID); Medtox Reader # READER 4; Methadone Not Detected (NotDetected); Methamphetamine Not Detected (NotDetected); Opiate Screen Not Detected (NotDetected); Oxycodone Screen Not Detected (NotDetected); Phencyclidine (PCP) Not Detected (NotDetected); THC/Cannabinoid Screen Detected (NotDetected); Tricyclic Screen Not Detected (NotDetected)
[2018-06-10 17:36] LABS: ALT (SGPT) 28 U/L (8-55); AST (SGOT) 45 U/L (5-34); Albumin 3.4 g/dL (3.5-5.0); Alkaline Phosphatase 68 U/L (40-150); Anion Gap 12 mmol/L (10-20); BUN (Urea Nitrogen) 16 mg/dL (7.0-18.7); Bilirubin, Total 0.4 mg/dL (0.2-1.2); CK (CPK) 634 U/L (29-168); Calc. Creatinine Clearance 0 mL/min (70-130); Calcium 8.3 mg/dL (7.8-10.44); Carbon Dioxide 23 mmol/L (22-29); Chloride 113 mmol/L (98-107); Estimated GFR-MDRD 85; Glucose 117 mg/dL (70-105); Potassium 3.5 mmol/L (3.5-5.1); Protein, Total 6.4 g/dL (6.0-8.3); Sodium 144 mmol/L (136-145)
--- NOTE | 2018-06-10 17:36 | RAD ---
CHEST 1 VIEW AND ABDOMEN 2 VIEWS: Date: 06/10/18 HISTORY: 52-year-old female with history of chest pain, difficulty breathing, and abdominal pain. FINDINGS: No significant acute process in the chest. Old granuloma in the right lower lobe and atherosclerotic changes of aorta. There is some gas and minimal fecal material in the colon. No free intraperitoneal air. No overt calc ulus. IMPRESSION: No significant acute process in the chest or abdomen. POS: [facility]
[2018-06-10 17:40] LABS: Troponin I Less than 0.010 ng/mL (< 0.028)
[2018-06-10 17:44] LABS: CKMB 11.7 ng/mL (0-6.6)
[2018-06-10] MEDS ORDERED: cefTRIAXone\\ROCEPHIN 1 GM VIAL ONE (18:53)
--- NOTE | 2018-06-10 19:13 | CT ---
CTA OF THE THORAX UTILIZING IV CONTRAST AND 3D REFORMATTED IMAGIN06/10/18 INDICATION: History of chest pain, difficulty breathing and abdominal pain. FINDINGS: The timing of the contrast bolus slightly limits image evaluation of the pulmonary arterial tree at t he lobar and segmental pulmonary levels. No definite central pulmonary embolus is evident. There is s evere emphysema. There is a 5 mm pulmonary nodule within the right middle lobe. There is a 5 mm subpl eural pulmonary nodule right lower lobe adjacent to the right major fissure. There is a calcified gra nuloma in the right lower lobe. There are calcified granuloma within the liver and spleen. No acute osseous abnormality is evidence. IMPRESSION: 1. No central pulmonary embolus. Limitation to the exam as above. 2. Pulmonary nodules. Followup CT evaluation in 12 months is recommended to document stability of the pulmonary nodules. 3. Severe emphysema. 4. Findings of prior granulomatous disease. POS: [facility]
[2018-06-10 20:41] LABS: Troponin I Less than 0.010 ng/mL (< 0.028)
[2018-06-10 22:59] VITALS: BMI 19.1
[2018-06-10 23:24] LABS: Troponin I Less than 0.010 ng/mL (< 0.028)
[2018-06-10] MEDS ORDERED: Naproxen 500 MG TAB PO PRN (23:48)
[2018-06-11] MEDS: PROVENTIL INHALER 6.7 G (200 INHALATIONS) INH SCH ×3 (07:38→13:09)
[2018-06-11] MEDS: Mometasone/Formoterol 120 PUFF INHALER INH SCH ×3 (07:40→18:14)
[2018-06-11] MEDS ORDERED: Prevnar 13-Val Conj/PF 0.5 ML SYRINGE IM ONE (09:00)
[2018-06-11] MEDS ORDERED: Regadenoson 0.4 MG/5 ML SYRINGE ONE (10:35)
[2018-06-11] MEDS: Acetaminophen 325 MG TAB PO PRN ×3 (11:11→21:03)
[2018-06-11] MEDS: cefTRIAXone\\ROCEPHIN 2 GM in Sodium Chloride 0.9% 100 ML IVPB SCH (11:11)
--- NOTE | 2018-06-11 11:27 | HP ---
CHIEF COMPLAINT/REASON FOR ADMISSION: Chest pain, abdominal pain and back pain. HISTORY OF PRESENT ILLNESS: Ms. Gonzales is a 52-year-old female with past medical history of chronic obstructive pulmonary disease and chronic cocaine abuse who came in because of a sharp pain in the chest. She said episode of the pain starts in back to come to the front or sometim es from abdomen and goes to the chest, pain in the retrosternal area, nonradiating, associated with s hortness of breath, no nausea, no dizziness, no diaphoresis. The patient uses cocaine regularly. Th e last time she used was 3 days ago. She came to the ER because of this pain everywhere and she was seen in the ER and with her suspected history and risk factors for coronary artery disease the patien t is being admitted to rule out myocardial infarction. PAST MEDICAL HISTORY: 1. COPD. 2. Bipolar disorder. 3. Polysubstance abuse with tobacco abuse. 4. Chronic back pain. 5. History of gastrointestinal bleeding. PAST SURGICAL HISTORY: 1. Status post umbilical hernia repair. 2. Status post thumb surgery. 3. Status post cervical biopsy. 4. Status post EGD and colonoscopy last year in April. ALLERGIES: No known drug allergies. FAMILY HISTORY: Nothing contributory. CURRENT MEDICATIONS: The patient is albuterol inhaler q.i.d. p.r.n., Symbicort 160/4.5 two puffs b.i .d., Zyprexa 15 mg at bedtime, Pravachol 20 mg at bedtime. SOCIAL HISTORY: Patient uses cocaine regularly, drinks alcohol socially, smokes half pack a day. REVIEW OF SYSTEMS: CARDIOVASCULAR: She has chest pain and shortness of breath. RESPIRATORY: No fever or cough. GASTROINTESTINAL: Has abdominal pain, no nausea and vomiting. CENTRAL NERVOUS SYSTEM: No headache, no dizziness. PHYSICAL EXAMINATION: GENERAL: The patient is alert, awake, oriented x3. VITAL SIGNS: Temperature 98, pulse 90, respirations 20, blood pressure 100/70. HEENT: Head is normocephalic, atraumatic. Pupils equal and reactive to light. Nasopharynx is pale and dry. Hard and soft palate, no lesions. SKIN: Skin turgor decreased. NECK: Supple. No JVD. LUNGS: Breath sounds diminished bilaterally. Percussion not dull bilaterally. No wheezing, no rale s. CARDIAC: S1, S2 regular. ABDOMEN: Soft, diffusely tender mildly. No guarding. No rigidity. Bowel sounds present. RECTAL: Deferred. NEUROLOGIC: No focal deficit. LABORATORY AND X-RAY FINDINGS: CBC shows WBC 3, hemoglobin 13, hematocrit 40, platelets 300. [place] panel shows sodium 144, potassium 3.1, chloride 113, CO2 23, BUN 16, creatinine 0.8, glucose 117, CK-MB 11.7, troponin I less than 0.10. CPK was 634. CT angio of chest negative for pulmonary embolism, showed severe ____ granulomatous disease. Acute a bdominal series negative. There is no significant acute process. EKG shows normal sinus rhythm, no acute ST-T wave changes seen. Urinalysis showed WBCs more than 50, bacteria 2+, leukocyte esterase positive. ASSESSMENT: 1. Atypical chest pain, rule out myocardial infarction. 2. Chronic obstructive pulmonary disease. 3. Chronic back pain. 4. Cocaine abuse. 5. Abdominal discomfort. 6. Urinary tract infection. 7. Bipolar disorder. PLAN: 1. Vital signs q.4 hours. 2. Activity: As tolerated. 3. Allergies: NKDA. 4. Diet: N.p.o. from midnight. 5. Continue home medications. 6. Continue neb 1 unit q.i.d. 7. Troponin I q.8 hours x2. 8. Rocephin 2 grams IV piggyback. 9. Aspirin 81 mg daily. 10. Nitro p.r.n.
--- NOTE | 2018-06-11 16:12 | NM ---
RADIONUCLIDE STRESS AND REST MYOCARDIAL PERFUSION SCAN WITH CT ATTENUATION CORRECTION AND SPECT IMAGI NG 06/11/18 HISTORY: Chest pain. FINDINGS: Lexiscan protocol. There is homogeneous uptake of radiotracer throughout the left ventricular myocardium. No focal perfu berry defect or reversibility. QGS analysis of gated SPECT images shows no focal wall motion abnormalities. Ejection fraction is armen culated at 64%. IMPRESSION: Normal myocardial perfusion scan. Normal LVEF. POS: [facility]
[2018-06-11] MEDS ORDERED: Ondansetron PF 4 MG/2 ML Vial SLOW IVP PRN (19:31)
[2018-06-11] MEDS ORDERED: OLANZapine 5 MG TAB PO SCH (21:00)
[2018-06-11] MEDS ORDERED: Pravastatin Sodium 20 MG TAB PO SCH (21:00)
[2018-06-12] MEDS: Mometasone/Formoterol 120 PUFF INHALER INH SCH (06:55)
[2018-06-12 07:39] VITALS: TEMP 97.5
[2018-06-12] MEDS: Acetaminophen 325 MG TAB PO PRN ×2 (10:32→16:04)
[2018-06-12] MEDS: cefTRIAXone\\ROCEPHIN 2 GM in Sodium Chloride 0.9% 100 ML IVPB SCH (10:39)
[2018-06-12 11:51] VITALS: BP 106/76
--- NOTE | 2018-06-13 13:23 | DIS ---
DATE OF ADMISSION: 06/10/2018 DATE OF DISCHARGE: 06/12/2018 ADMITTING DIAGNOSES: 1. Chest pain, rule out myocardial infarction. 2. Chronic obstructive pulmonary disease. 3. Chronic back pain. 4. Cocaine abuse. 5. Abdominal discomfort. 6. Urinary tract infection. 7. Bipolar disorder. FINAL DIAGNOSES: 1. Atypical chest pain, no evidence of acute myocardial infarction, and negative stress test. 2. Chronic obstructive pulmonary disease. 3. Chronic back pain. 4. Cocaine abuse. 5. Abdominal discomfort, improved. 6. Urinary tract infection. 7. Bipolar disorder. BRIEF SUMMARY OF HOSPITAL COURSE: Ms. Gonzales is a 52-year-old, - [place] female admitted because of chest pain, sharp in nature, not associated with any diaphoresis. The patient was admitted to rule out myocardial infarction in view of cocaine abuse. Cardiac enzymes were within normal limits. A Cardiolite stress test was done and has reported as negative for ischemia. The patient also had a urinary tract infection. Initially, she was given Rocephin. The patient did have some abdominal pain, but got resolved. In view of improvement, the patient was discharged. At the time of discharge, she was stable. Her vital signs are stable. Lungs are clear. Heart sounds are regular. Abdomen is soft, nontender. Bowel sounds are present. DISCHARGE MEDICATIONS: Include Symbicort 160/4.5 two puffs b.i.d., Pravachol 20 mg at bedtime, naproxen p.r.n., Zyprexa 15 mg at bedtime, albuterol inhaler 2 puffs q.i.d. and also given Levaquin 750 daily for 5 days. The patient is strongly advised to not to use cocaine anymore. FOLLOWUP: The patient will come for followup in 2 weeks. [facility]
== END 2018-06-12 17:11 | disposition home or self-care (01) ==
LOC: ERS 16:32 → 2SE 19:50
PROVIDERS: ADMIT Internal Medicine; ATTEND Internal Medicine
DX: R07.89 Other chest pain (principal); J44.9 Chronic obstructive pulmonary disease, unspecified; F14.10 Cocaine abuse, uncomplicated; F31.9 Bipolar disorder, unspecified; F17.210 Nicotine dependence, cigarettes, uncomplicated; G89.29 Other chronic pain; M54.9 Dorsalgia, unspecified; R10.9 Unspecified abdominal pain; N39.0 Urinary tract infection, site not specified; Z79.899 Other long term (current) drug therapy
CPT/HCPCS: 36415; 71275; 74022; 78452; 80053; 80306; 81003; 81015; 82553; 84484; 85025; 90471; 90670; 93005; 93017; 94640; 94760; 96365; A9500; G0009; G0378; J0696; J2405; J2785; J7050; J7620

== ENCOUNTER 2018-06-23 04:26 | Emergency (ER) | payer OTHER ==
[2018-06-23] MEDS ORDERED: Morphine 4 MG/ML VIAL ONE (04:48)
[2018-06-23] MEDS ORDERED: Ondansetron PF 4 MG/2 ML Vial ONE (04:48)
[2018-06-23 04:53] LABS: Bilirubin Negative (Negative); Blood, Urine Small (Negative); Glucose, Urine (Dipstick) Negative (Negative); Leukocyte Negative (Negative); Nitrite Negative (Negative); Protein, Urine (Dipstick) Negative (Neg-Trace); Specific Gravity, Urine 1.025 (1.005-1.030); Urobilinogen 0.2 mg/dL (0.2-1.0)
[2018-06-23 05:14] LABS: #Eosinphils 0.1 thou/uL (0.0-0.7); #Lymphocytes 1.2 thou/uL (1.20-3.40); #Monocytes 0.4 thou/uL (0.11-0.59); #Neutrophils 1.5 thou/uL (1.40-6.50); %Basophils 1.4 % (0.0-1.0); %Eosinophils 4.2 % (0.0-10.0); %Lymphocytes 37.5 % (21.0-51.0); %Monocytes 11.6 % (0.0-10.0); %Neutrophils 45.3 % (42.0-75.0); Hemoglobin 12.6 g/dL (12.0-16.0); Mean Corpuscular HGB CONC 33.7 g/dL (32.0-36.0); Mean Corpuscular Hemoglobin 33.6 pg (27.0-31.0); Mean Corpuscular Volume 99.8 fL (78.0-98.0); Mean Platelet Volume 6.8 fL (7.4-10.4); Platelet Count 286 thou/uL (130-400); RBC Distribution Width 11.7 % (11.5-14.5); Red Blood Cell (RBC) Count 3.76 mill/uL (4.20-5.40); White Blood Cell (WBC) Count 3.3 thou/uL (4.8-10.8)
[2018-06-23 05:25] LABS: ALT (SGPT) 21 U/L (8-55); AST (SGOT) 25 U/L (5-34); Albumin 3.7 g/dL (3.5-5.0); Alkaline Phosphatase 72 U/L (40-150); Anion Gap 12 mmol/L (10-20); BUN (Urea Nitrogen) 16 mg/dL (9.8-20.1); Bilirubin, Total 0.3 mg/dL (0.2-1.2); CK (CPK) 167 U/L (29-168); CRP (Inflammatory) Less than 0.50 mg/dL (= or < 0.5); Calc. Creatinine Clearance 0 mL/min (70-130); Calcium 8.8 mg/dL (7.8-10.44); Carbon Dioxide 25 mmol/L (22-29); Chloride 107 mmol/L (98-107); Estimated GFR-MDRD 66; Globulin 3.4 g/dL (2.4-3.5); Glucose 97 mg/dL (70-105); Potassium 3.7 mmol/L (3.5-5.1); Protein, Total 7.1 g/dL (6.0-8.3); Sodium 140 mmol/L (136-145)
[2018-06-23 05:33] LABS: Clarity Cloudy (Clear); WBC/HPF 0-3 HPF (0-3)
[2018-06-23 05:34] LABS: Bacteria/HPF 1+ HPF (None Seen); Hyaline Casts/LPF NONE SEEN LPF (0-3 Hyaline); Squamous Epithelial 0-3 HPF (0-3); Trichomonas/HPF None Seen HPF (None Seen); Yeast-All Forms None Seen HPF (None Seen)
--- NOTE | 2018-06-23 07:58 | RAD ---
CHEST ONE VIEW: HISTORY: Cough. COMPARISON: 08/18/2017 FINDINGS: Normal cardiac silhouette. Pulmonary vessels and hilum are normal. Costophrenic angles are clear. No masses or consolidation. No pneumothorax or osseous abnormalities. IMPRESSION: No acute cardiopulmonary process. POS: [facility]
== END 2018-06-23 06:08 | disposition home or self-care (01) ==
LOC: ERS 04:26
DX: R10.9 Unspecified abdominal pain (principal); Z71.6 Tobacco abuse counseling; F17.210 Nicotine dependence, cigarettes, uncomplicated; M06.9 Rheumatoid arthritis, unspecified; J42 Unspecified chronic bronchitis; I47.1 Supraventricular tachycardia; F20.9 Schizophrenia, unspecified; F31.9 Bipolar disorder, unspecified; Z85.41 Personal history of malignant neoplasm of cervix uteri; Z79.899 Other long term (current) drug therapy
CPT/HCPCS: 36415; 71045; 80053; 81003; 81015; 82550; 83690; 85025; 85652; 86140; 96361; 96374; 96375; 99406; J2270; J2405

== ENCOUNTER 2018-07-07 09:03 | Emergency (ER) | payer OTHER | END 2018-07-07 09:25 | disposition home or self-care (01) | LOC: ERS 09:03 | DX: T78.40XA Allergy, unspecified, initial encounter (principal); F31.9 Bipolar disorder, unspecified; M06.9 Rheumatoid arthritis, unspecified; F17.210 Nicotine dependence, cigarettes, uncomplicated; Z79.899 Other long term (current) drug therapy | CPT/HCPCS: 99282 ==

== ENCOUNTER 2018-09-14 10:07 | Emergency (ER) | payer OTHER ==
--- NOTE | 2018-09-14 10:35 | RAD ---
CHEST 1 VIEW: HISTORY: Dyspnea. Cough. COMPARISON: 06/23/2019. FINDINGS: Cardiac silhouette is magnified by projection. Pulmonary vasculature are unremarkable. Lungs remain hyperinflated. Calcified granulomata are consistent with healed granulomatous disease. No lobar co nsolidation or evidence of pneumothorax. IMPRESSION: Pulmonary hyperinflation and other chronic-type findings are stable. POS: [facility]
[2018-09-14 10:40] LABS: Hemoglobin 15.7 g/dL (12.0-16.0); Mean Corpuscular HGB CONC 34.1 g/dL (32.0-36.0); Mean Corpuscular Hemoglobin 33.2 pg (27.0-31.0); Mean Corpuscular Volume 97.4 fL (78.0-98.0); Mean Platelet Volume 6.7 fL (7.4-10.4); Platelet Count 250 thou/uL (130-400); RBC Distribution Width 11.4 % (11.5-14.5); Red Blood Cell (RBC) Count 4.72 mill/uL (4.20-5.40)
[2018-09-14] MEDS ORDERED: Ondansetron PF 4 MG/2 ML Vial ONE (10:53)
[2018-09-14 11:04] LABS: Band 1 % (5-11); Lymphocytes 13 % (21-51); MDiff Complete? YES; Monocytes 10 % (0-10); Neutrophil 54 % (42-75); Platelet Morphology Comment Appears Adequate; Reactive Lymphocytes 22 % (0-10)
[2018-09-14] MEDS ORDERED: methylPREDNISolone Sod Succ/PF 125 MG/2 ML VIAL ONE (11:04)
[2018-09-14 11:06] LABS: ALT (SGPT) 11 U/L (8-55); AST (SGOT) 18 U/L (5-34); Albumin 3.6 g/dL (3.5-5.0); Alkaline Phosphatase 83 U/L (40-150); Anion Gap 12 mmol/L (10-20); BUN (Urea Nitrogen) 7 mg/dL (9.8-20.1); Bilirubin, Total 0.6 mg/dL (0.2-1.2); Calc. Creatinine Clearance 0 mL/min (70-130); Calcium 8.8 mg/dL (7.8-10.44); Carbon Dioxide 21 mmol/L (22-29); Chloride 106 mmol/L (98-107); Estimated GFR-MDRD Greater than 90; Globulin 3.4 g/dL (2.4-3.5); Glucose 124 mg/dL (70-105); Potassium 3.1 mmol/L (3.5-5.1); Sodium 136 mmol/L (136-145)
[2018-09-14] MEDS ORDERED: Potassium Chloride 20 MEQ TAB ONE (11:18)
[2018-09-14] MEDS ORDERED: Azithromycin 250 MG TAB ONE (11:18)
== END 2018-09-14 11:59 | disposition home or self-care (01) ==
LOC: ERS 10:07
DX: J44.1 Chronic obstructive pulmonary disease with (acute) exacerbation (principal); F17.210 Nicotine dependence, cigarettes, uncomplicated
CPT/HCPCS: 36415; 71045; 80053; 83605; 83880; 84484; 85025; 93005; 94640; 96361; 96374; 96375; J2405; J2930; J7620

== ENCOUNTER 2019-01-06 16:26 | Emergency (ER) | payer OTHER ==
[2019-01-06 17:32] LABS: #Eosinphils 0.1 thou/uL (0.0-0.7); #Lymphocytes 1.1 thou/uL (1.20-3.40); #Monocytes 0.3 thou/uL (0.11-0.59); #Neutrophils 1.3 thou/uL (1.40-6.50); %Basophils 1.5 % (0.0-1.0); %Eosinophils 2.5 % (0.0-10.0); %Lymphocytes 37.9 % (21.0-51.0); %Monocytes 11.7 % (0.0-10.0); %Neutrophils 46.4 % (42.0-75.0); Hemoglobin 13.2 g/dL (12.0-16.0); Mean Corpuscular HGB CONC 34.2 g/dL (32.0-36.0); Mean Corpuscular Hemoglobin 33.7 pg (27.0-31.0); Mean Corpuscular Volume 98.5 fL (78.0-98.0); Mean Platelet Volume 6.6 fL (7.4-10.4); Platelet Count 230 thou/uL (130-400); RBC Distribution Width 11.3 % (11.5-14.5); Red Blood Cell (RBC) Count 3.91 mill/uL (4.20-5.40); White Blood Cell (WBC) Count 2.8 thou/uL (4.8-10.8)
[2019-01-06 17:50] LABS: Bilirubin Small (Negative); Blood, Urine Small (Negative); Clarity CLOUDY (Clear); Glucose, Urine (Dipstick) Negative (Negative); Leukocyte Negative (Negative); Nitrite Negative (Negative); Protein, Urine (Dipstick) Trace mg/dL (Neg-Trace)
[2019-01-06 17:52] LABS: Bacteria/HPF None Seen HPF (None Seen); Hyaline Casts/LPF 4-6 HYALINE CAST LPF (0-3 Hyaline); Pathc Cast-AUWi Flag 0.54 (0-2.49); WBC/HPF 0-3 HPF (0-3)
[2019-01-06 17:54] LABS: Acetaminophen Less than 6.0 mcg/mL (10.0-30.0); Alcohol Less than 10 mg/dL (Less than 10); CK (CPK) 257 U/L (29-168); Salicylate Less than 8.0 mg/dL (15.0-30.0)
[2019-01-06 17:55] LABS: Pregnancy Test - Urine (BHCG) Negative (Negative); Pregu Control Background? CLEAR/WHITE (CLR/WHITE); Pregu Control Bar Appear? YES (CONTROL BAR)
[2019-01-06 17:55] LABS: ALT (SGPT) 19 U/L (8-55); AST (SGOT) 30 U/L (5-34); Albumin 3.5 g/dL (3.5-5.0); Alkaline Phosphatase 61 U/L (40-150); Anion Gap 10 mmol/L (10-20); BUN (Urea Nitrogen) 10 mg/dL (9.8-20.1); Bilirubin, Total 0.3 mg/dL (0.2-1.2); Calc. Creatinine Clearance 0 mL/min (70-130); Calcium 8.9 mg/dL (7.8-10.44); Carbon Dioxide 23 mmol/L (22-29); Chloride 111 mmol/L (98-107); Estimated GFR-MDRD Greater than 90; Globulin 2.9 g/dL (2.4-3.5); Glucose 116 mg/dL (70-105); Potassium 3.2 mmol/L (3.5-5.1); Protein, Total 6.4 g/dL (6.0-8.3); Sodium 141 mmol/L (136-145)
[2019-01-06 18:02] LABS: Cocaine Metabolite Screen Detected (NotDetected); Medtox Reader # READER 4
[2019-01-06 18:03] LABS: Amphetamine Not Detected (NotDetected); Barbiturates Screen Not Detected (NotDetected); Benzodiazepine Screen Not Detected (NotDetected); Medtox Control Line Valid? VALID (VALID); Methadone Not Detected (NotDetected); Methamphetamine Not Detected (NotDetected); Opiate Screen Not Detected (NotDetected); Oxycodone Screen Not Detected (NotDetected); Phencyclidine (PCP) Not Detected (NotDetected); THC/Cannabinoid Screen Not Detected (NotDetected); Tricyclic Screen Not Detected (NotDetected)
[2019-01-06 18:10] LABS: Crystals/HPF 2+ CA OXALATE HPF (Negative)
--- NOTE | 2019-01-06 18:50 | RAD ---
EXAM: CHEST ONE VIEW ABDOMEN TWO VIEWS: 01/06/19 HISTORY: Suicidal thoughts. Lower abdominal pain. COMPARISON: 06/10/18. FINDINGS: Mild hyperinflation of the lungs without other acute process. No evidence for free intraperitoneal ai r. No large or small bowel obstruction or overt calculus. IMPRESSION: Stable lung bilateral hyperinflation. No large or small bowel obstruction, overt calculus, free air o r other acute process. POS: [facility]
[2019-01-06] MEDS ORDERED: Acetaminophen 500 MG TAB ONE (20:53)
== END 2019-01-07 02:56 ==
LOC: ERS 16:26
DX: R45.851 Suicidal ideations (principal); R45.850 Homicidal ideations; I47.1 Supraventricular tachycardia; M06.9 Rheumatoid arthritis, unspecified; J42 Unspecified chronic bronchitis; F31.9 Bipolar disorder, unspecified; F20.9 Schizophrenia, unspecified; F17.210 Nicotine dependence, cigarettes, uncomplicated; I95.9 Hypotension, unspecified; Z79.899 Other long term (current) drug therapy
CPT/HCPCS: 36415; 74022; 80053; 80306; 80307; 81003; 81015; 81025; 82550; 84443; 85025